=== PATIENT | female | born 1965 | race Caucasian/White ===

== ENCOUNTER 2016-12-24 10:53 | Day surgery (SDC) | payer OTHER ==
[2016-12-22 14:30] VITALS: BMI 30.9
[2016-12-24] MEDS ORDERED: ALBUTEROL SO4 2.5/IPRATROPIUM 0.5 INH SOL 3 ML VIAL.NEB. NEB ONE ×2 (11:41→11:45)
[2016-12-24] MEDS ORDERED: ONDANSETRON 4 MG/2 ML VIAL ONE (12:05)
[2016-12-24] MEDS ORDERED: ROCURONIUM BROMIDE 50 MG/5 ML VIAL ONE (12:05)
[2016-12-24] MEDS ORDERED: MIDAZOLAM HCL 2 MG/2 ML SINGLE DOSE VIAL ONE (12:05)
[2016-12-24] MEDS ORDERED: PROPOFOL 20 ML ONE (12:06)
[2016-12-24] MEDS ORDERED: GLYCOPYRROLATE 0.2 MG/1 ML VIAL ONE ×4 (12:06)
[2016-12-24] MEDS ORDERED: NEOSTIGMINE METHYLSULFATE 0.5 MG/ML - 10 ML MDV ONE (12:06)
[2016-12-24] MEDS ORDERED: SUCCINYLCHOLINE CHLORIDE 200 MG/10 ML VIAL ONE (12:06)
[2016-12-24] MEDS ORDERED: DEXAMETHASONE SOD PHOSPHATE 10 MG/1 ML VIAL ONE (12:07)
[2016-12-24] MEDS ORDERED: INDOMETHACIN 50 MG RECTAL SUPPOSITORY PR ONE ×3 (12:25→13:30)
[2016-12-24] MEDS ORDERED: IOHEXOL 300 MG/ML INFUS..BTL IV ONE (12:40)
[2016-12-24 13:15] VITALS: TEMP 97.5
[2016-12-24 16:53] VITALS: BP 127/67; PULSE 88
== END 2016-12-24 17:19 | disposition home or self-care (01) ==
LOC: JASU-ENDO 10:53
PROVIDERS: ATTEND Internal Medicine Gastroenterology
PROC: 0FJB8ZZ Inspection of Hepatobiliary Duct, Via Natural or Artificial Opening Endoscopic (ICD-10-PCS; principal; 2016-12-24 12:00)
DX: K83.8 Other specified diseases of biliary tract (principal)
CPT/HCPCS: 36415; 76000-TC; 82150; 84703; 94640

== ENCOUNTER 2017-01-06 05:36 | Day surgery (SDC) | payer OTHER ==
[2017-01-02 17:23] VITALS: BMI 30.9
[2017-01-06] MEDS ORDERED: SUCCINYLCHOLINE CHLORIDE 200 MG/10 ML VIAL ONE (14:25)
[2017-01-06] MEDS ORDERED: MIDAZOLAM HCL 2 MG/2 ML SINGLE DOSE VIAL ONE (14:25)
[2017-01-06] MEDS ORDERED: PROPOFOL 20 ML ONE ×2 (14:25)
[2017-01-06] MEDS ORDERED: METRONIDAZOLE 500 MG PREMIXED 100 ML IVPB ONE (14:37)
[2017-01-06] MEDS ORDERED: VASOPRESSIN 20 UNITS/ML VIAL IV ONE ×2 (14:59→15:00)
[2017-01-06] MEDS ORDERED: METRONIDAZOLE 500 MG PREMIXED 500 MG/100 ML MG IVPB ONE (15:05)
[2017-01-06] MEDS ORDERED: DESFLURANE GAS 240 ML BOTTLE IH ONE (15:26)
[2017-01-06] MEDS ORDERED: oxyCODONE HCL 5 MG TABLET PO PRN ×2 (15:52→15:57)
[2017-01-06] MEDS ORDERED: ONDANSETRON 4 MG/2 ML VIAL IVPUSH PRN (15:52)
--- NOTE | 2017-01-06 15:52 | HP ---
History & Physical Update - History History: No Change - Physical Physical: No Change - Assessment Assessment: No Change - Plan Plan: No Change (Consent signed and witnessed)
--- NOTE | 2017-01-06 15:56 | OP ---
Operative Note - Note: Operative Date: 01/06/17 Pre-Operative Diagnosis: 51 yo P0 with FREDY II-III on colposcopic biopsy Operation: Cold knife cone, Endocervical curettage, Endometrial curettage Findings: 1.5cm diameter Lugol Uptake Post-Operative Diagnosis: Same as Pre-op Surgeon: Naina Pruitt Anesthesiologist/SUPERVISOR FINISHING ROOM: Osman Kwan Anesthesia: MAC Specimens Removed: 1. Cervical cone. 2. ECC. 3. EMC Estimated Blood Loss (mls): 20 Drains, Volume Out (mls): 200 Fluid Volume Replaced (mls): 800 Operative Report Dictated: Yes
[2017-01-06] MEDS ORDERED: IBUPROFEN 800 MG/8 ML IJ IVPB PRN (15:57)
[2017-01-06] MEDS ORDERED: ONDANSETRON 4 MG/2 ML VIAL IVPB PRN (15:57)
[2017-01-06] MEDS ORDERED: IBUPROFEN 600 MG TABLET (FP) PO PRN (15:57)
[2017-01-06] MEDS ORDERED: LACTATED RINGERS SOLUTION 1,000 ML IV SCH (16:00)
[2017-01-06] MEDS ORDERED: ELECTROLYTE-148 SOLN 1,000 ML IV SCH (16:00)
[2017-01-06 16:43] VITALS: TEMP 97.7
[2017-01-06 17:51] VITALS: BP 143/74; PULSE 81
--- NOTE | 2017-01-07 13:06 | OP ---
DATE OF OPERATION: 01/06/2017 PREOPERATIVE DIAGNOSIS: A 51-year-old para 0 with FREDY 2-3 on colposcopic biopsy. OPERATION: Cold knife cone, endocervical curettage, and endometrial curettage. FINDINGS: A 1.5 cm in diameter ectocervical lesion with Lugol uptake. PREOPERATIVE DIAGNOSIS: A 51-year-old para 0 with FREDY 2-3 on colposcopic biopsy. SURGEON: Naina Pruitt MD ANESTHESIOLOGIST: Osman Kwan MD ANESTHESIA: Mask-assisted anesthesia. SPECIMENS: Cervical cone, endocervical curettings and endometrial curettings; total of 3 specimens. ESTIMATED BLOOD LOSS: 20 mL. URINE OUTPUT: 200 mL. FLUIDS REPLACED: 800 mL. DESCRIPTION OF THE OPERATIVE PROCEDURE: After ensuring informed consent, patient was brought to the operating room where a time-out was conducted and patient was properly identified. After ensuring adequate level of anesthesia, patient was placed in dorsal lithotomy position. Perineum was prepped with betadine and vagina was prepped with ascetic acid. Arechiga retractors were placed into the vagina. Cervix was articulated with a single-toothed tenaculum and painted with Lugol solution. Then, 6 mL of dilute 20 in 100 of normal saline vasopressin solution were injected circumferentially, avoiding the 3 and 9 o'clock positions. UR-5 size 0 Vicryl sutures were used at 3 o'clock and 9 o'clock to assure further hemostasis. An 11 blade was used to create a cone, excising the Lugol-painted lesion of the cervix circumferentially. Specimen was marked at 12, 6, 3, and 9 o'clock, and was sent for pathology. A 0 surgical curette was used for endocervical curettage and the same curette was used for endometrial curettage. The cone base was cauterized with Rollerball cautery and Monsel solution until excellent hemostasis was achieved. Stay sutures were tied in the midline. All instruments were removed from the cervix and vagina. Patient was placed supine. All instrument counts and sponges were correct x2. Patient was extubated and brought to the recovery room in stable condition. Jonatan [id number]
--- NOTE | 2017-01-08 10:36 | PATH ---
Surgical Pathology Report Patient Name: RASHMI ESCOBAR [facility]. Rec. #: [id number] /Age/Gender: 1965 (Age: 51) / F Account: [id number] Location: [facility] SURGICAL Taken: 01/06/2017 Received: 01/07/2017 Reported: 01/13/2017 Physicians: Naina Pruitt M.D. Specimen(s) Received A: ENDOMETRIAL CURETTINGS B: ENDOCERVICAL CURETTINGS C: CERVICAL CONE Clinical History High grade intraepithelial lesion cyto smr cervix Final Diagnosis AMENDED REPORT A. ENDOMETRIUM, CURETTING: BENIGN ENDOCERVICAL MUCOSA AND POSSIBLE LOWER UTERINE SEGMENT ENDOMETRIUM. NO ENDOMETRIAL HYPERPLASIA OR CARCINOMA IDENTIFIED. B. ENDOCERVIX, CURETTING: ISOLATED FRAGMENTS OF DYSPLASTIC SQUAMOUS EPITHELIUM, AND BENIGN ENDOCERVICAL TISSUE. C. CERVIX, CONE EXCISION: HIGH GRADE SQUAMOUS INTRAEPITHELIAL LESION (FREDY 2-3, MODERATE TO SEVERE DYSPLASIA) WITH ENDOCERVICAL GLANDULAR EXTENSION. HIGH GRADE SQUAMOUS INTRAEPITHELIAL LESION FOCALLY EXTENDS TO ECTOCERVICAL MARGIN. Comment: Recommend correlation with clinical findings and follow up as clinically indicated. Amendment Comment: This case was discussed with Dr. Pruitt on 01/12/2017. A typographical error has been corrected in Specimen B, changing "ileum" to "epithelium". As an additional comment, the High Grade KATHY in Specimen C extends to the ectocervical margin in the 12:00 to 3:00 quadrant. Electronically Signed Gary Menjivar M.D. Gross Description A. Received in formalin labeled "endometrial curetting," is a 0.6 x 0.5 x 0.2 cm aggregate of dai-brown soft tissue fragments. The formalin is filtered and the specimen is entirely submitted in one cassette. B. Received in formalin labeled "endocervical curetting," is a 0.4 x 0.3 x 0.1 cm aggregate of dai-brown soft tissue fragments. The formalin is filtered and the specimen is entirely submitted in one cassette. C. Received in formalin labeled "cervical cone," is a 2.9 cm in length x 1.4 cm in diameter cervical cone biopsy. There is a suture marking the 12:00 aspect of the specimen, per the surgeon. The specimen is inked green, serially sectioned and entirely and sequentially submitted in 4 cassettes as follows: 1-12:00 to 3:00; 2-3-3:00 to 6:00; 4-6:00 to 9:00; 5-9:00 to 12:00. /01/07/2017 saudi01/07/2017
== END 2017-01-06 17:55 | disposition home or self-care (01) ==
LOC: JASU-SURG 05:36
PROVIDERS: ATTEND Obstetrics & Gynecology
PROC: 0UBC7ZX Excision of Cervix, Via Natural or Artificial Opening, Diagnostic (ICD-10-PCS; principal; 2017-01-06 12:00)
DX: D06.9 Carcinoma in situ of cervix, unspecified (principal)
CPT/HCPCS: 84703; 87086; 88305-TC; 88307-TC; 94760

== ENCOUNTER 2017-10-26 19:06 | Inpatient (IN) | payer OTHER ==
[2017-10-26 19:25] VITALS: BMI 32.2
--- NOTE | 2017-10-26 19:26 | PDOC ---
Rapid Medical Evaluation Chief Complaint: Pain Time Seen by Provider: 10/26/17 19:24 Medical Evaluation: Allergies Allergy/AdvReac Type Severity Reaction Status Date / Time No Known Allergies Allergy Verified 01/06/17 11:00 10/26/17 19:24 I performed a brief in-person evaluation of this patient. This patient presents with a chief complaint of epigastric pain radiating to right upper quadrant and around to back. Also reports nausea and productive cough spitting up yellowish phlegm. Denies fever or chills. Reports history of cholecystitis. Pertinent physical exam findings: NAD lungs clear bilat +tenderness in mid epigastrum, no tenderness in right upper quadrant + bowel sounds I have ordered the following: labs ordered The patient will proceed to the ED for further evaluation.
[2017-10-26 20:18] LABS: BASO % 0.7 % (0-2.0); EOS % 0.4 % (0-4.5); HEMATOCRIT 41.2 % (32.4-45.2); HEMOGLOBIN 12.8 GM/dL (10.7-15.3); LYMPH % 8.6 % (8-40); MCH 24.4 pg (25.7-33.7); MCHC 31.2 g/dl (32.0-36.0); MEAN CELL VOLUME 78.4 fl (80-96); MEAN PLT VOLUME 8.6 fl (7.5-11.1); MONO % 7.8 % (3.8-10.2); NEUT % 82.5 % (42.8-82.8); PLATELET COUNT 272 K/MM3 (134-434); RBC 5.25 M/mm3 (3.60-5.2); RDW 17.2 % (11.6-15.6); WHITE BLOOD COUNT 14.9 K/mm3 (4.0-10.0)
[2017-10-26 20:42] LABS: ALBUMIN 3.5 g/dl (3.4-5.0); ANION GAP 9 (8-16); BLOOD UREA NITROGEN 12 mg/dL (7-18); CALCIUM 8.3 mg/dL (8.5-10.1); CHLORIDE 104 mmol/L (98-107); CO2 26 mmol/L (21-32); CREATININE 0.7 mg/dL (0.55-1.02); GLUCOSE,RANDOM 106 mg/dL (74-106); LIPASE 97 U/L (73-393); POTASSIUM 4.6 mmol/L (3.5-5.1); SGOT/AST 22 U/L (15-37); SGPT/ALT 26 U/L (12-78); SODIUM 139 mmol/L (136-145)
[2017-10-26 20:44] LABS: ALK PHOS 114 U/L (45-117); BILIRUBIN,TOTAL 1.2 mg/dL (0.2-1.0); TOT PROT 7.9 g/dl (6.4-8.2)
[2017-10-26 21:58] LABS: INR 1.09 (0.82-1.09); PROTHROMBIN TIME (PATIENT) 12.3 SEC (9.98-11.88)
[2017-10-26 22:01] LABS: ACTIVATED PTT 28.3 SECONDS (26.9-34.4)
[2017-10-26] MEDS ORDERED: morphine CARPU-JECT 2 MG/1 ML DISP.SYRIN IVPUSH ONE (23:04)
[2017-10-26] MEDS ORDERED: ONDANSETRON 4 MG/2 ML VIAL IVPUSH STA (23:04)
[2017-10-26] MEDS ORDERED: PANTOPRAZOLE SODIUM 40 MG in SODIUM CHLORIDE 100 ML IVPB ONE (23:04)
--- NOTE | 2017-10-26 23:04 | PDOC ---
History of Present Illness - History of Present Illness Initial Comments: 10/26/17 23:15 Patient is a 52 year old female with a significant PMHx of COPD (current pack a day smoker)ERCP done in December, who present to the ED for epigastric pain similar to her "gallbladder" attack. Patient describes her pain as severe cramping that radiates throughout her ribcage. Patient states she has been nauseous, forced vomiting with thick clear/yellow tinted mucous, unable to eat for 2 days. She denies any fever, urinary complaints. Denies any recent travel. Allergies: denies Family history: maternal CAD & diabetes Social history: pack a day smoker PCP: Koki Jolley GI: Vamsi Judge <Pau Juarez - Last Filed: 10/26/17 23:52> - General History Source: Patient <Jean Paul Hernandez - Last Filed: 10/27/17 19:14> - General Chief Complaint: Pain Stated Complaint: ABDOMINAL PAIN Time Seen by Provider: 10/26/17 19:24 Past History <Pau Juarez - Last Filed: 10/26/17 23:52> - Past Medical History Anemia: No Asthma: No Cancer: No Cardiac Disorders: No CVA: No COPD: Yes (+ smoker) CHF: No Dementia: No Diabetes: No GI Disorders: Yes (GALLSTONES) Disorders: No HTN: No Hypercholesterolemia: No Liver Disease: No Seizures: No Thyroid Disease: No - Surgical History Abdominal Surgery: No Appendectomy: No Cardiac Surgery: No Cholecystectomy: No Lung Surgery: No Neurologic Surgery: No Orthopedic Surgery: Yes (KNEE SX RT) - Suicide/Smoking/Psychosocial Hx Smoking History: Current every day smoker Have you smoked in the past 12 months: Yes Number of Cigarettes Smoked Daily: 20 Information on smoking cessation initiated: No 'Breaking Loose' booklet given: 12/24/16 Hx Alcohol Use: Yes Drug/Substance Use Hx: No Substance Use Type: Alcohol Hx Substance Use Treatment: No <Jean Paul Hernandez - Last Filed: 10/27/17 19:14> - Past Medical History Allergies/Adverse Reactions: Allergies Allergy/AdvReac Type Severity Reaction Status Date / Time No Known Allergies Allergy Verified 01/06/17 11:00 Home Medications: Ambulatory Orders Albuterol Sulfate [Proventil HFA Inhaler -] 1 - 2 inh PO TID PRN #1 inhaler Tiotropium [place] [Spiriva] 1 inh PO PRN 12/22/16 Review of Systems - Review of Systems Comments:: 10/26/17 23:21 CONSTITUTIONAL: Absent: fever, no chills, no fatigue EYES: Absent: visual changes ENT: Absent: ear pain, no sore throat CARDIOVASCULAR: Absent: chest pain, no palpitations RESPIRATORY: Absent: cough, no SOB GI: Present: epigastric pain, nausea, forced vomiting Absent: no constipation, no diarrhea GENITOURINARY: Absent: dysuria, no frequency, no hematuria MUSCULOSKELETAL: Absent: back pain, no arthralgia, no myalgia SKIN: Absent: rash <Pau Juarez - Last Filed: 10/26/17 23:52> *Physical Exam - Vital Signs Last Vital Signs Temp Pulse Resp BP Pulse Ox 98.2 F 104 H 22 119/69 99 10/26/17 19:22 10/26/17 19:22 10/26/17 19:22 10/26/17 19:22 10/26/17 19:22 - Physical Exam Comments: 10/26/17 23:22 GENERAL: Well-appearing, well-nourished. In moderate distress. HEENT: Normocephalic, atraumatic. PERRL, EOM intact. CARDIOVASCULAR: Normal S1, S2. Regular rate and rhythm. PULMONARY: Clear to auscultation bilaterally. ABDOMEN: Soft, non-distended, right upper quadrant & epigastric pain. No rebound or guarding. EXTREMITIES: Normal ROM in all four extremities. No gross deformities. SKIN: Warm, dry. No rash NEUROLOGICAL: Intact, no focal neurological deficits. <Pau Juarez - Last Filed: 10/26/17 23:52> - Vital Signs Last Vital Signs Temp Pulse Resp BP Pulse Ox 98.2 F 104 H 22 119/69 99 10/26/17 19:22 10/26/17 19:22 10/26/17 19:22 10/26/17 19:22 10/26/17 19:22 <Jean Paul Hernandez - Last Filed: 10/27/17 19:14> Heart Score/ECG Review - ECG Impressions Comment:: 10/26/17 23:50 EKG Interpretation: Normal sinus rhythm Possible left atrial enlargement nonspecific abnormality Vent. rate: 79 bpm <Pau Juarez - Last Filed: 10/26/17 23:52> ED Treatment Course - LABORATORY CBC & Chemistry Diagram: 10/26/17 20:10 10/26/17 20:10 - ADDITIONAL ORDERS Additional order review: Laboratory Results 10/26/17 10/26/17 20:10 20:10 PT with INR 12.30 H INR 1.09 PTT (Actin FS) 28.3 Sodium 139 Potassium 4.6 Chloride 104 Carbon Dioxide 26 Anion Gap 9 BUN 12 Creatinine 0.7 Creat Clearance w eGFR > 60 Random Glucose 106 Calcium 8.3 L Total Bilirubin 1.2 H D AST 22 ALT 26 Alkaline Phosphatase 114 Total Protein 7.9 Albumin 3.5 Lipase 97 10/26/17 20:10 RBC 5.25 H MCV 78.4 L MCHC 31.2 L RDW 17.2 H D MPV 8.6 Neutrophils % 82.5 D Lymphocytes % 8.6 D Monocytes % 7.8 Eosinophils % 0.4 D Basophils % 0.7 <Pau Juarez - Last Filed: 10/26/17 23:52> - LABORATORY CBC & Chemistry Diagram: 10/26/17 20:10 10/26/17 20:10 - ADDITIONAL ORDERS Additional order review: Laboratory Results 10/26/17 10/26/17 20:10 20:10 PT with INR 12.30 H INR 1.09 PTT (Actin FS) 28.3 Sodium 139 Potassium 4.6 Chloride 104 Carbon Dioxide 26 Anion Gap 9 BUN 12 Creatinine 0.7 Creat Clearance w eGFR > 60 Random Glucose 106 Calcium 8.3 L Total Bilirubin 1.2 H D AST 22 ALT 26 Alkaline Phosphatase 114 Total Protein 7.9 Albumin 3.5 Lipase 97 10/26/17 20:10 RBC 5.25 H MCV 78.4 L MCHC 31.2 L RDW 17.2 H D MPV 8.6 Neutrophils % 82.5 D Lymphocytes % 8.6 D Monocytes % 7.8 Eosinophils % 0.4 D Basophils % 0.7 <Jean Paul Hernandez - Last Filed: 10/27/17 19:14> Medical Decision Making - Medical Decision Making 10/27/17 19:13 Dr. Hernandez: The scribe's documentation has been prepared under my direction and personally reviewed by me in its entirery. I confirm that the note above accurately reflects all work, treatment, procedures, and medical decision making performed by me. <Jean Paul Hernandez - Last Filed: 10/27/17 19:14> *DC/Admit/Observation/Transfer - Attestations Scribe Attestion: 10/26/17 23:24 Documentation prepared by Pau Juarez, acting as medical insurance coding specialist for Jean Paul Hernandez MD. <Pau Juarez - Last Filed: 10/26/17 23:52> <Jean Paul Hernandez - Last Filed: 10/27/17 19:14> Diagnosis at time of Disposition: Biliary colic - Discharge Dispostion Condition at time of disposition: Fair
[2017-10-26] MEDS ORDERED: SODIUM CHLORIDE 1,000 ML IV STA (23:05)
[2017-10-26] MEDS ORDERED: morphine CARPU-JECT 10 MG/1 ML DISP.SYRIN ONE (23:19)
[2017-10-26] MEDS ORDERED: ONDANSETRON 4 MG/2 ML VIAL ONE (23:19)
[2017-10-27] MEDS ORDERED: HYDROmorphone HCL CARPU-JECT 1 MG/1 ML DISP.SYRIN IVPUSH ONE ×2 (01:20→09:58)
[2017-10-27] MEDS ORDERED: METOCLOPRAMIDE HCL INJECTION 10 MG/2 ML VIAL IVPUSH ONE (01:20)
[2017-10-27] MEDS ORDERED: METOCLOPRAMIDE HCL INJECTION 10 MG/2 ML VIAL ONE (01:28)
[2017-10-27] MEDS ORDERED: HYDROmorphone HCL CARPU-JECT 1 MG/1 ML DISP.SYRIN ONE ×2 (01:28→10:59)
--- NOTE | 2017-10-27 09:55 | PDOC ---
*Physical Exam - Vital Signs Last Vital Signs Temp Pulse Resp BP Pulse Ox 98.2 F 81 22 131/60 95 10/26/17 19:22 10/27/17 06:48 10/26/17 19:22 10/27/17 06:48 10/27/17 06:48 - Physical Exam Comments: 10/27/17 09:46 Afebrile, well-appearing Tender with guarding in the right upper quadrant, otherwise soft and nondistended ED Treatment Course - LABORATORY CBC & Chemistry Diagram: 10/26/17 20:10 10/26/17 20:10 - ADDITIONAL ORDERS Additional order review: Laboratory Results 10/26/17 10/26/17 23:35 20:10 PT with INR 12.30 H INR 1.09 PTT (Actin FS) 28.3 Creatine Kinase 39 Troponin I < 0.02 10/26/17 20:10 RBC 5.25 H MCV 78.4 L MCHC 31.2 L RDW 17.2 H D MPV 8.6 Neutrophils % 82.5 D Lymphocytes % 8.6 D Monocytes % 7.8 Eosinophils % 0.4 D Basophils % 0.7 - Medications Given in the ED: ED Medications Discontinued Medications Generic Name Dose Route Start Last Admin Trade Name Freq PRN Reason Stop Dose Admin Hydromorphone HCl 0.5 mg 10/27/17 01:20 10/27/17 01:39 Dilaudid Injection - IVPUSH 10/27/17 01:21 0.5 mg ONCE ONE Administration Pantoprazole Sodium 40 mg/ 100 mls @ 200 mls/hr 10/26/17 23:04 10/26/17 23:52 Sodium Chloride IVPB 10/26/17 23:33 200 mls/hr ONCE ONE Administration Sodium Chloride 1,000 mls @ 1,000 mls/hr 10/26/17 23:05 10/26/17 23:42 Normal Saline - IV 10/27/17 00:04 1,000 mls/hr ASDIR STA Administration Metoclopramide HCl 10 mg 10/27/17 01:20 10/27/17 01:40 Reglan Injection - IVPUSH 10/27/17 01:21 10 mg ONCE ONE Administration Morphine Sulfate 6 mg 10/26/17 23:04 10/26/17 23:42 Morphine Injection - IVPUSH 10/26/17 23:05 6 mg ONCE ONE Administration Ondansetron HCl 4 mg 10/26/17 23:04 10/26/17 23:52 Zofran Injection IVPUSH 10/26/17 23:05 4 mg ONCE STA Administration Medical Decision Making - Medical Decision Making 10/27/17 09:50 Received signout on this 52-year-old female who presented with acute onset right upper quadrant pain for 2 days' duration, known history of gallstones. Labs notable for white count of 14.9, normal LFTs and lipase. Plan at sign out was to follow up right upper quadrant ultrasound and distal accordingly. Ultrasound shows multiple gallstones and dilated CBD without clear choledocholithiasis or cholecystitis. Patient's right upper quadrant tenderness persists, and given the leukocytosis with ? CBD stone and cholecystitis, admitted for further management. Dr. Orta called as decoration checker service physician. 10/27/17 12:09 Accepted for inpatient med/surg by Dr. Orta, signout given to Dr. Larson. Requests consult from Dr. Chahal, which was ordered. *DC/Admit/Observation/Transfer Diagnosis at time of Disposition: Biliary colic - Discharge Dispostion Condition at time of disposition: Fair Admit: Yes - Referrals Referrals: Koki Jolley MD [Primary Care Provider] - - Patient Instructions - Post Discharge Activity
--- NOTE | 2017-10-27 10:43 | EKG ---
Test Reason : Blood Pressure : / mmHG Vent. Rate : 079 BPM Atrial Rate : 079 BPM P-R Int : 128 ms QRS Dur : 090 ms QT Int : 366 ms P-R-T Axes : 041 -12 061 degrees QTc Int : 419 ms NORMAL SINUS RHYTHM POSSIBLE LEFT ATRIAL ENLARGEMENT NONSPECIFIC ST ABNORMALITY ABNORMAL ECG WHEN COMPARED WITH ECG OF 01-JAN-2017 12:08, NO SIGNIFICANT CHANGE WAS FOUND Confirmed by MD Keanu, Lui ([id number]) on 10/27/2017 10:43:17 AM Referred By: Confirmed By:Lui Colunga MD
--- NOTE | 2017-10-27 14:06 | HP ---
Admitting History and Physical - Admission Chief Complaint: RUQ pain nausea and vomtting for 3 days History of Present Illness: Patient is a 52 year old female with a significant PMHx of COPD (current pack a day smoker)ERCP done in December, who present to the ED for epigastric pain similar to her "gallbladder" attack. Patient describes her pain as severe cramping that radiates throughout her ribcage. Patient states she has been nauseous, forced vomiting with thick clear/yellow tinted mucous, unable to eat for 2 days. She denies any fever, urinary complaints. Denies any recent travel. Allergies: denies Family history: maternal CAD & diabetes Social history: pack a day smoker PCP: Koki Jolley GI: Vamsi Judge per patient her pain started on thursday and was intially intermittent then became constant and severe so came to ER in ER found to have elevated wbc and bilirubin History Source: Patient - Past Medical History Pulmonary: Yes: COPD Hepatobiliary: Yes: Cholelithiasis ...LMP: 08/12/17 - Smoking History Smoking history: Current every day smoker Have you smoked in the past 12 months: Yes Aproximately how many cigarettes per day: 20 - Alcohol/Substance Use Hx Alcohol Use: Yes Home Medications - Allergies Allergies/Adverse Reactions: Allergies Allergy/AdvReac Type Severity Reaction Status Date / Time No Known Allergies Allergy Verified 01/06/17 11:00 - Home Medications Home Medications: Ambulatory Orders Albuterol Sulfate [Proventil HFA Inhaler -] 1 - 2 inh PO TID PRN #1 inhaler Tiotropium [place] [Spiriva] 1 inh PO PRN 12/22/16 Review of Systems - Review of Systems Gastrointestinal: reports: Abdominal Pain (RUQ), Nausea Physical Examination Vital Signs: Vital Signs Temperature 98.2 F 10/26/17 19:22 Pulse Rate 81 10/27/17 06:48 Respiratory Rate 22 10/26/17 19:22 Blood Pressure 131/60 10/27/17 06:48 O2 Sat by Pulse Oximetry (%) 98 10/27/17 09:55 Constitutional: Yes: Calm Neck: Yes: Trachea Midline Cardiovascular: Yes: Regular Rate and Rhythm, S1, S2 Respiratory: Yes: CTA Bilaterally Gastrointestinal: Yes: Tenderness (ruq) Labs: CBC, BMP 10/26/17 20:10 10/26/17 20:10 Problem List - Problems (1) Biliary colic Assessment/Plan: HIDA scan surgery evaluation Code(s): K80.50 - CALCULUS OF BILE DUCT W/O CHOLANGITIS OR CHOLECYST W/O OBST (2) Cholelithiasis Assessment/Plan: liver sono noted will order hida scan ivf iv abx dvt ppx Code(s): K80.20 - CALCULUS OF GALLBLADDER W/O CHOLECYSTITIS W/O OBSTRUCTION
[2017-10-27] MEDS ORDERED: CEFTRIAXONE 1 GM in DEXTROSE 5%-WATER - 50 ML IVPB SCH (14:15)
[2017-10-27] MEDS ORDERED: CEFTRIAXONE 1 GM/50 ML BAG ONE (14:35)
[2017-10-27] MEDS: DEXTROSE 5%-0.45% SALINE 1,000 ML IV SCH (14:35)
--- NOTE | 2017-10-27 21:01 | CONSULT ---
Consult Consult Specialty:: Surgery Reason for Consultation:: Abdominal pain - History of Present Illness History of Present Illness: 52 female presents for epigastric abdominal pain Had ERCP 1 month ago to rule out CBD stone- no stone seen per patient Now with similar pain No fevers/chills No nausea U/S shows gallstones with dilated CBD - History Source History Provided By: Patient, Medical Record Limitations to Obtaining History: No Limitations - Past Medical History Pulmonary: Yes: COPD Hepatobiliary: Yes: Cholelithiasis ...LMP: 08/12/17 - Alcohol/Substance Use Hx Alcohol Use: Yes - Smoking History Smoking history: Current every day smoker Have you smoked in the past 12 months: Yes Aproximately how many cigarettes per day: 20 Home Medications - Allergies Allergies/Adverse Reactions: Allergies Allergy/AdvReac Type Severity Reaction Status Date / Time No Known Allergies Allergy Verified 01/06/17 11:00 - Home Medications Home Medications: Ambulatory Orders Albuterol Sulfate [Proventil HFA Inhaler -] 1 - 2 inh PO TID PRN #1 inhaler Tiotropium [place] [Spiriva] 1 inh PO PRN 12/22/16 Family Disease History - Family Disease History Family History: Denies Review of Systems - Review of Systems Constitutional: denies: Chills, Fever Neck: reports: No Symptoms Cardiovascular: denies: Chest Pain Respiratory: denies: Cough Gastrointestinal: reports: Abdominal Pain (Mild epigastric pain) Neurological: denies: Change in LOC Pain Intensity: 3 Physical Exam Vital Signs: Vital Signs Temperature 98.7 F 10/27/17 14:08 Pulse Rate 94 H 10/27/17 19:42 Respiratory Rate 18 10/27/17 19:42 Blood Pressure 122/53 10/27/17 19:42 O2 Sat by Pulse Oximetry (%) 96 10/27/17 19:42 Constitutional: Yes: Calm Neck: Yes: Supple Cardiovascular: Yes: WNL Respiratory: Yes: Regular Gastrointestinal: Yes: Soft, Tenderness, Epigastrium. No: Tenderness, Rebound Neurological: Yes: Alert, Oriented Labs: CBC, BMP 10/26/17 20:10 10/26/17 20:10 Imaging - Results Ultrasound: Report Reviewed, Image Reviewed MRI: Pending Problem List - Problems (1) Acute cholecystitis Code(s): K81.0 - ACUTE CHOLECYSTITIS (2) Choledocholithiasis Code(s): K80.50 - CALCULUS OF BILE DUCT W/O CHOLANGITIS OR CHOLECYST W/O OBST Assessment/Plan 52 female with acute cholecystitis and dilated CBD MRCP to evaluate for CBD stone If CBD stone present, will need ERCP and then cholecystectomy If CBD stone not present, will need cholecystectomy NPO Antibiotics IV fluids
[2017-10-27] MEDS ORDERED: morphine CARPU-JECT 10 MG/1 ML DISP.SYRIN ONE (21:08)
[2017-10-27] MEDS: morphine CARPU-JECT 10 MG/1 ML DISP.SYRIN IVPUSH PRN (21:12)
--- NOTE | 2017-10-28 09:01 | PN ---
Progress Note (short form) - Note Progress Note: PT with a h/o of gallstones/s/p ERCP in the past without any stones visualized at the time. She had recurrent abd pain which has improved since admission. Vital Signs Period Temp Pulse Resp BP Sys/Hernandez Pulse Ox Last 24 Hr 98.5 F-99.1 F 91-100 17-20 104-135/53-79 95-100 GEN: appears comfortable ABD: soft, non-distended, epigastric tenderness. No guarding or rebound. Laboratory Tests 10/26/17 10/26/17 10/26/17 20:10 20:10 23:35 WBC 14.9 H D Hgb 12.8 Hct 41.2 Plt Count 272 D Sodium 139 Potassium 4.6 Chloride 104 Carbon Dioxide 26 Anion Gap 9 BUN 12 Creatinine 0.7 Creat Clearance w eGFR > 60 Random Glucose 106 Calcium 8.3 L Total Bilirubin 1.2 H D AST 22 ALT 26 Alkaline Phosphatase 114 Creatine Kinase 39 Troponin I < 0.02 Lipase 97 US-stones, dilated biliary tree HIDA: No GB filling A/P: 52 yo female with cholelithiasis/acute nishant PT receiving IV ceftriaxone F/u labs for today and trend LFTs MRCP ordered and will proceed with lap nishant if MRCP negative. ERCP if CBD stone visiaulzed on MRCP <Griselda Ann - Last Filed: 10/28/17 09:06> - Note Progress Note: Agree Pain improved + HIDA MRCP pending Abd soft, mild epigastric tenderness Await MRCP NPO <Sam Chahal - Last Filed: 10/28/17 15:07> Problem List - Problems (1) Acute cholecystitis Code(s): K81.0 - ACUTE CHOLECYSTITIS (2) Choledocholithiasis Code(s): K80.50 - CALCULUS OF BILE DUCT W/O CHOLANGITIS OR CHOLECYST W/O OBST <Sam Chahal - Last Filed: 10/28/17 15:07>
[2017-10-28 09:10] LABS: BASO % 0.6 % (0-2.0); EOS % 2.1 % (0-4.5); HEMATOCRIT 34.5 % (32.4-45.2); HEMOGLOBIN 10.6 GM/dL (10.7-15.3); LYMPH % 14.5 % (8-40); MCH 24.2 pg (25.7-33.7); MCHC 30.7 g/dl (32.0-36.0); MEAN CELL VOLUME 78.7 fl (80-96); MEAN PLT VOLUME 8.5 fl (7.5-11.1); MONO % 12.6 % (3.8-10.2); NEUT % 70.2 % (42.8-82.8); PLATELET COUNT 217 K/MM3 (134-434); RBC 4.38 M/mm3 (3.60-5.2); RDW 17.7 % (11.6-15.6); WHITE BLOOD COUNT 11.1 K/mm3 (4.0-10.0)
[2017-10-28 09:24] LABS: ALBUMIN 2.7 g/dl (3.4-5.0); AMYLASE 27 U/L (25-115); ANION GAP 6 (8-16); BLOOD UREA NITROGEN 12 mg/dL (7-18); CALCIUM 7.5 mg/dL (8.5-10.1); CHLORIDE 107 mmol/L (98-107); CO2 28 mmol/L (21-32); CREATININE 0.4 mg/dL (0.55-1.02); GLUCOSE,RANDOM 95 mg/dL (74-106); LIPASE 118 U/L (73-393); MAGNESIUM 1.5 mg/dL (1.8-2.4); PHOSPHOROUS 2.5 mg/dL (2.5-4.9); POTASSIUM 3.8 mmol/L (3.5-5.1); SGOT/AST 12 U/L (15-37); SGPT/ALT 18 U/L (12-78); SODIUM 141 mmol/L (136-145); TOT PROT 6.2 g/dl (6.4-8.2)
[2017-10-28 09:25] LABS: ALK PHOS 85 U/L (45-117); BILIRUBIN,TOTAL 0.6 mg/dL (0.2-1.0)
[2017-10-28] MEDS ORDERED: PT OWN MED DRAWER 7, Y5N ONE (09:36)
[2017-10-28] MEDS: PANTOPRAZOLE SODIUM 40 MG VIAL IVPUSH SCH (09:38)
[2017-10-28] MEDS: TIOTROPIUM BROMIDE 18 MCG/INH (DEVICE W/ 5 CAPSULES) IH SCH (09:38)
[2017-10-28] MEDS: CEFTRIAXONE 1 G/50 ML PREMIX 50 ML IVPB SCH (09:38)
--- NOTE | 2017-10-28 12:34 | PN ---
Progress Note, Physician Chief Complaint: Abdominal pain History of Present Illness: NAD, self ambulatory seen by GI surgery awaiting MRCP NPO - Current Medication List Current Medications: Active Medications Dextrose/Sodium Chloride (D5-1/2ns -) 1,000 mls @ 100 mls/hr IV ASDIR [facility] Last Admin: 10/27/17 14:35 Dose: 100 mls/hr CEFTRIAXONE 1 G/50 ML PREMIX (Ceftriaxone 1 Gm-D5w Bag) 50 mls @ 100 mls/hr IVPB DAILY [facility] Stop: 10/31/17 14:14 Last Admin: 10/28/17 09:38 Dose: 100 mls/hr Morphine Sulfate (Morphine Injection -) 4 mg IVPUSH Q6H PRN PRN Reason: PAIN LEVEL 7 - 10 Last Admin: 10/27/17 21:12 Dose: 4 mg Ondansetron HCl (Zofran Injection) 4 mg IVPUSH Q6H PRN PRN Reason: NAUSEA Pantoprazole Sodium (Protonix Iv) 40 mg IVPUSH DAILY [facility] Last Admin: 10/28/17 09:38 Dose: 40 mg Tiotropium [place] (Spiriva -) 1 puff IH DAILY [facility] Last Admin: 10/28/17 09:38 Dose: Not Given - Objective Vital Signs: Vital Signs Temperature 99.4 F 10/28/17 09:00 Pulse Rate 100 H 10/28/17 09:00 Respiratory Rate 20 10/28/17 09:00 Blood Pressure 113/64 10/28/17 09:00 O2 Sat by Pulse Oximetry (%) 97 10/28/17 09:00 Constitutional: Yes: Well Nourished, No Distress, Calm Cardiovascular: Yes: Regular Rate and Rhythm Respiratory: Yes: Regular Gastrointestinal: Yes: Tenderness, Epigastrium Musculoskeletal: Yes: WNL Extremities: Yes: WNL Edema: No Peripheral Pulses WNL: Yes Neurological: Yes: Alert, Oriented Psychiatric: Yes: Alert, Oriented Labs: CBC, BMP 10/28/17 07:45 10/28/17 07:45 INR, PTT INR 1.09 (0.82-1.09) 10/26/17 20:10 Problem List - Problems (1) Acute cholecystitis Assessment/Plan: -IV abx -seen by GI surgery -IVF -morphine for pain management -awaiting MRCP Code(s): K81.0 - ACUTE CHOLECYSTITIS (2) Choledocholithiasis Code(s): K80.50 - CALCULUS OF BILE DUCT W/O CHOLANGITIS OR CHOLECYST W/O OBST (3) Leukocytosis Assessment/Plan: 2/2 cholecystitis -improving -monitor trend -afebrile Code(s): D72.829 - ELEVATED WHITE BLOOD CELL COUNT, UNSPECIFIED Assessment/Plan see problem list
--- NOTE | 2017-10-28 18:51 | PN ---
Progress Note (short form) - Note Progress Note: MRCP reviewed patieint has possible CBD stone vs pnumobilia, s/p ERCP by Dr Judge last 12/26/16. Patient would like to contiue to see Dr Patel. The nurse was informed
[2017-10-28] MEDS: MAGNESIUM OXIDE 400 MG TABLET (FP) PO SCH (21:53)
[2017-10-29] MEDS: DEXTROSE 5%-0.45% SALINE 1,000 ML IV SCH (00:30)
[2017-10-29 07:43] LABS: BASO % 0.5 % (0-2.0); EOS % 4.7 % (0-4.5); HEMATOCRIT 35.8 % (32.4-45.2); HEMOGLOBIN 11.3 GM/dL (10.7-15.3); LYMPH % 14.7 % (8-40); MCH 24.8 pg (25.7-33.7); MCHC 31.5 g/dl (32.0-36.0); MEAN CELL VOLUME 78.6 fl (80-96); MEAN PLT VOLUME 8.4 fl (7.5-11.1); MONO % 11.3 % (3.8-10.2); NEUT % 68.8 % (42.8-82.8); PLATELET COUNT 211 K/MM3 (134-434); RBC 4.56 M/mm3 (3.60-5.2); RDW 17.3 % (11.6-15.6); WHITE BLOOD COUNT 8.9 K/mm3 (4.0-10.0)
[2017-10-29 08:25] LABS: CHLORIDE 107 mmol/L (98-107); POTASSIUM 3.6 mmol/L (3.5-5.1); SODIUM 141 mmol/L (136-145)
[2017-10-29 08:52] LABS: ALBUMIN 2.6 g/dl (3.4-5.0); ALK PHOS 82 U/L (45-117); ANION GAP 9 (8-16); BILIRUBIN,DIRECT 0.2 mg/dL (0.0-0.2); BILIRUBIN,TOTAL 0.7 mg/dL (0.2-1.0); BLOOD UREA NITROGEN 6 mg/dL (7-18); CALCIUM 7.4 mg/dL (8.5-10.1); CO2 25 mmol/L (21-32); CREATININE 0.4 mg/dL (0.55-1.02); GLUCOSE,RANDOM 106 mg/dL (74-106); SGOT/AST 12 U/L (15-37); SGPT/ALT 17 U/L (12-78); TOT PROT 6.1 g/dl (6.4-8.2)
[2017-10-29] MEDS ORDERED: PT OWN MED DRAWER 7, Y5N ONE ×2 (09:14→09:56)
[2017-10-29] MEDS: MAGNESIUM OXIDE 400 MG TABLET (FP) PO SCH ×2 (09:19→22:37)
[2017-10-29] MEDS: CEFTRIAXONE 1 G/50 ML PREMIX 50 ML IVPB SCH (09:20)
[2017-10-29] MEDS: PANTOPRAZOLE SODIUM 40 MG VIAL IVPUSH SCH (09:20)
[2017-10-29] MEDS: TIOTROPIUM BROMIDE 18 MCG/INH (DEVICE W/ 5 CAPSULES) IH SCH (09:22)
--- NOTE | 2017-10-29 10:30 | PN ---
Progress Note, Physician Chief Complaint: Abdominal pain History of Present Illness: NAD, self ambulatory seen by GI surgery no abdominal pain eager to go home to be seen by Dr Judge's group MRCP reviewed, would likely need ERCP - Current Medication List Current Medications: Active Medications CEFTRIAXONE 1 G/50 ML PREMIX (Ceftriaxone 1 Gm-D5w Bag) 50 mls @ 100 mls/hr IVPB DAILY [facility] Stop: 10/31/17 14:14 Last Admin: 10/29/17 09:20 Dose: 100 mls/hr Dextrose/Lactated Ringer's (D5-Lr -) 1,000 mls @ 75 mls/hr IV ASDIR [facility] Magnesium Oxide (Mag-Ox -) 400 mg PO BID [facility] Last Admin: 10/29/17 09:19 Dose: 400 mg Morphine Sulfate (Morphine Injection -) 4 mg IVPUSH Q6H PRN PRN Reason: PAIN LEVEL 7 - 10 Last Admin: 10/27/17 21:12 Dose: 4 mg Ondansetron HCl (Zofran Injection) 4 mg IVPUSH Q6H PRN PRN Reason: NAUSEA Pantoprazole Sodium (Protonix Iv) 40 mg IVPUSH DAILY [facility] Last Admin: 10/29/17 09:20 Dose: 40 mg Tiotropium [place] (Spiriva -) 1 puff IH DAILY [facility] Last Admin: 10/29/17 09:22 Dose: 1 puff - Objective Vital Signs: Vital Signs Temperature 99.2 F 10/29/17 08:00 Pulse Rate 92 H 10/29/17 08:00 Respiratory Rate 18 10/29/17 08:00 Blood Pressure 135/68 10/29/17 08:00 O2 Sat by Pulse Oximetry (%) 96 10/28/17 22:00 Constitutional: Yes: Well Nourished, No Distress, Calm Cardiovascular: Yes: Regular Rate and Rhythm Respiratory: Yes: Regular Gastrointestinal: Yes: Normal Bowel Sounds, Soft, Tenderness, Epigastrium (on palpation) Musculoskeletal: Yes: WNL Extremities: Yes: WNL Edema: No Peripheral Pulses WNL: Yes Neurological: Yes: Alert, Oriented Psychiatric: Yes: Alert, Oriented Labs: CBC, BMP 10/29/17 06:43 10/29/17 06:43 INR, PTT INR 1.09 (0.82-1.09) 10/26/17 20:10 Problem List - Problems (1) Acute cholecystitis Assessment/Plan: -IV abx -seen by GI surgery -IVF -morphine for pain management -ERCP Code(s): K81.0 - ACUTE CHOLECYSTITIS (2) Choledocholithiasis Code(s): K80.50 - CALCULUS OF BILE DUCT W/O CHOLANGITIS OR CHOLECYST W/O OBST (3) Leukocytosis Assessment/Plan: 2/2 cholecystitis -improving -monitor trend -afebrile Code(s): D72.829 - ELEVATED WHITE BLOOD CELL COUNT, UNSPECIFIED Assessment/Plan see problem list
[2017-10-29] MEDS: DEXTROSE 5%-LACTATED RINGERS 1,000 ML IV SCH ×2 (10:50→21:10)
--- NOTE | 2017-10-29 13:42 | CON.GI ---
Consult Consult Specialty:: GI: Dr. Mckinney covering for Dr. Stewart Referred by:: Vineet Sabillon NP Reason for Consultation:: cholecystitis - History of Present Illness Chief Complaint: I had abdominal pain History of Present Illness: 52F admitted with 2 day history of right upper quadrant pain radiating bilaterally, upper abdominal pain along with associated nausea / vomiting. She has had similar episodes in the past however they would last significantly less time. She was evaluated by Dr. Guerra 10/28. Work-up led to an MRCP revealing dilated CBD with suggestion of filling defects within the duct. A follow-up ERCP was performed by Dr. Judge 12/26 that revealed a non-dilated PD, 1cm dilated CBD without filling defects, and sphincterotomy was not performed. Currently, US 10/27 revealed a dilated biliary tree, cholelithiasis and fatty liver. MRCP 10/28/17 revealed Persistent CBD dilatation with ? filling defect in dependent portion of CBD. HIDA was failed to reveal filling of the GB. Ms. Hanley has never had a colonoscopy. There is no family history of colorectal cancer or other GI malignancy. 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 Place of : [facility] History of Recent Travel: No Home Medications - Allergies Allergies/Adverse Reactions: Allergies Allergy/AdvReac Type Severity Reaction Status Date / Time No Known Allergies Allergy Verified 01/06/17 11:00 - Home Medications Home Medications: Ambulatory Orders Albuterol Sulfate [Proventil HFA Inhaler -] 1 - 2 inh PO TID PRN #1 inhaler Tiotropium [place] [Spiriva] 1 inh PO PRN 12/22/16 Family Disease History - Family Disease History Family Disease History: Other: Father (: 40's CHF), Mother (: 70's: blood dyscrasia), Sister (1, healthy), Son (none), Daughter (none) Other Family History: No family history of colorectal cancer or other GI malignancy Review of Systems - Review of Systems Constitutional: denies: Chills, Fever Cardiovascular: denies: Chest Pain Respiratory: reports: Cough (chronic). denies: SOB Gastrointestinal: reports: Abdominal Pain, Nausea, Vomiting. denies: Bloating, Rectal Bleeding Physical Exam-GI Vital Signs: Vital Signs Temperature 99.2 F 10/29/17 08:00 Pulse Rate 92 H 10/29/17 08:00 Respiratory Rate 18 10/29/17 08:00 Blood Pressure 135/68 10/29/17 08:00 O2 Sat by Pulse Oximetry (%) 96 10/29/17 09:00 Constitutional: Yes: Calm Eyes: No: Sclera Icterus Cardiovascular: Yes: Regular Rate and Rhythm Respiratory: Yes: CTA Bilaterally Gastrointestinal Inspection: No: Distention ...Auscultate: Yes: Normoactive Bowel Sounds ...Palpate: Yes: Tenderness (TTP RUQ). No: Guarding, Tenderness, Rebound ...Percussion: No: Tympanitic Edema: No (No LE edema) Labs: CBC, BMP 10/29/17 06:43 10/29/17 06:43 INR, PTT INR 1.09 (0.82-1.09) 10/26/17 20:10 Hepatic Panel Total Bilirubin 0.7 mg/dL (0.2-1.0) 10/29/17 06:43 Direct Bilirubin 0.2 mg/dL (0.0-0.2) 10/29/17 06:43 AST 12 U/L (15-37) L 10/29/17 06:43 ALT 17 U/L (12-78) 10/29/17 06:43 Alkaline Phosphatase 82 U/L (45-117) 10/29/17 06:43 Albumin 2.6 g/dl (3.4-5.0) L 10/29/17 06:43 Imaging - Results Ultrasound: Report Reviewed MRI: Report Reviewed Problem List - Problems (1) Acute cholecystitis Assessment/Plan: NPO IV Abx. Surgery following Code(s): K81.0 - ACUTE CHOLECYSTITIS (2) Choledocholithiasis Assessment/Plan: Despite normal liver chemistries, given MRCP findings and that spincterotomy was not performed during previous ERCP, Cannot exclude intraductal filling defect such as stone. Discussed case with Dr. Stewart and repeat ERCP planned for tomorrow. Discussed potential risks of the procedure like but not limited to bleeding, perforation requiring surgery to repair, infection, pancreatitis, sedation medication effects all of which could be potentially life threatening. She has agreed to the procedure AM labs ordered including T&C / coags Indocin suppository ordered Code(s): K80.50 - CALCULUS OF BILE DUCT W/O CHOLANGITIS OR CHOLECYST W/O OBST
[2017-10-29] MEDS: morphine CARPU-JECT 10 MG/1 ML DISP.SYRIN IVPUSH PRN (13:53)
--- NOTE | 2017-10-29 18:54 | PN ---
Progress Note (short form) - Note Progress Note: No acute events Pain improved MRCP reviewed with radiologist- filling defect in CBD seen GI called Vital Signs Period Temp Pulse Resp BP Sys/Hernandez Pulse Ox Last 24 Hr 98.1 F-99.2 F 81-92 18-20 135-156/68-80 96-97 Abd soft, minimal tenderness CBC,CMP WBC 8.9 K/mm3 (4.0-10.0) 10/29/17 06:43 RBC 4.56 M/mm3 (3.60-5.2) 10/29/17 06:43 Hgb 11.3 GM/dL (10.7-15.3) 10/29/17 06:43 Hct 35.8 % (32.4-45.2) 10/29/17 06:43 MCV 78.6 fl (80-96) L 10/29/17 06:43 MCH 24.8 pg (25.7-33.7) L 10/29/17 06:43 MCHC 31.5 g/dl (32.0-36.0) L 10/29/17 06:43 RDW 17.3 % (11.6-15.6) H 10/29/17 06:43 Plt Count 211 K/MM3 (134-434) 10/29/17 06:43 MPV 8.4 fl (7.5-11.1) 10/29/17 06:43 Neutrophils % 68.8 % (42.8-82.8) 10/29/17 06:43 Lymphocytes % 14.7 % (8-40) 10/29/17 06:43 Monocytes % 11.3 % (3.8-10.2) H 10/29/17 06:43 Eosinophils % 4.7 % (0-4.5) H D 10/29/17 06:43 Basophils % 0.5 % (0-2.0) 10/29/17 06:43 Sodium 141 mmol/L (136-145) 10/29/17 06:43 Potassium 3.6 mmol/L (3.5-5.1) 10/29/17 06:43 Chloride 107 mmol/L (98-107) 10/29/17 06:43 Carbon Dioxide 25 mmol/L (21-32) 10/29/17 06:43 Anion Gap 9 (8-16) 10/29/17 06:43 BUN 6 mg/dL (7-18) L 10/29/17 06:43 Creatinine 0.4 mg/dL (0.55-1.02) L 10/29/17 06:43 Creat Clearance w eGFR > 60 (>60) 10/29/17 06:43 Random Glucose 106 mg/dL (74-106) 10/29/17 06:43 Calcium 7.4 mg/dL (8.5-10.1) L 10/29/17 06:43 Phosphorus 2.5 mg/dL (2.5-4.9) 10/28/17 07:45 Magnesium 1.5 mg/dL (1.8-2.4) L 10/28/17 07:45 Total Bilirubin 0.7 mg/dL (0.2-1.0) 10/29/17 06:43 Direct Bilirubin 0.2 mg/dL (0.0-0.2) 10/29/17 06:43 AST 12 U/L (15-37) L 10/29/17 06:43 ALT 17 U/L (12-78) 10/29/17 06:43 Alkaline Phosphatase 82 U/L (45-117) 10/29/17 06:43 Creatine Kinase 39 IU/L (26-192) 10/26/17 23:35 Troponin I < 0.02 ng/ml (0.00-0.05) 10/26/17 23:35 Total Protein 6.1 g/dl (6.4-8.2) L 10/29/17 06:43 Albumin 2.6 g/dl (3.4-5.0) L 10/29/17 06:43 Total Amylase 27 U/L (25-115) 10/28/17 07:45 Lipase 118 U/L (73-393) 10/28/17 07:45 ERCP planned by GI tomorrow Antibiotics If clinically improves, continue antibiotics and will plan cholecystectomy in 6 weeks once inflammation resolves If worsens will need Interventional radiology for percutaneous cholecystostomy and then cholecystectomy in 6 weeks Patient agrees with the plan Problem List - Problems (1) Acute cholecystitis Code(s): K81.0 - ACUTE CHOLECYSTITIS (2) Choledocholithiasis Code(s): K80.50 - CALCULUS OF BILE DUCT W/O CHOLANGITIS OR CHOLECYST W/O OBST
[2017-10-30 08:58] LABS: ALBUMIN 2.6 g/dl (3.4-5.0); ANION GAP 8 (8-16); BILIRUBIN,TOTAL 0.6 mg/dL (0.2-1.0); BLOOD UREA NITROGEN 5 mg/dL (7-18); CALCIUM 7.8 mg/dL (8.5-10.1); CHLORIDE 107 mmol/L (98-107); CO2 27 mmol/L (21-32); GLUCOSE,RANDOM 97 mg/dL (74-106); POTASSIUM 3.8 mmol/L (3.5-5.1); SGOT/AST 16 U/L (15-37); SGPT/ALT 19 U/L (12-78); SODIUM 142 mmol/L (136-145)
[2017-10-30 08:59] LABS: ALK PHOS 79 U/L (45-117); BASO % 0.6 % (0-2.0); CREATININE 0.5 mg/dL (0.55-1.02); EOS % 5.9 % (0-4.5); HEMATOCRIT 35.8 % (32.4-45.2); HEMOGLOBIN 11.1 GM/dL (10.7-15.3); LYMPH % 14.2 % (8-40); MCH 24.6 pg (25.7-33.7); MCHC 31.1 g/dl (32.0-36.0); MEAN PLT VOLUME 8.5 fl (7.5-11.1); MONO % 10.6 % (3.8-10.2); NEUT % 68.7 % (42.8-82.8); PLATELET COUNT 220 K/MM3 (134-434); RBC 4.54 M/mm3 (3.60-5.2); RDW 16.8 % (11.6-15.6); TOT PROT 6.3 g/dl (6.4-8.2); WHITE BLOOD COUNT 8.2 K/mm3 (4.0-10.0)
[2017-10-30 09:00] LABS: INR 1.19 (0.82-1.09); PROTHROMBIN TIME (PATIENT) 13.5 SEC (9.98-11.88)
[2017-10-30] MEDS ORDERED: INDOMETHACIN 50 MG RECTAL SUPPOSITORY PR ONE (09:00)
[2017-10-30 09:03] LABS: ACTIVATED PTT 28.4 SECONDS (26.9-34.4)
[2017-10-30] MEDS ORDERED: PT OWN MED DRAWER 7, Y5N ONE (09:05)
[2017-10-30] MEDS: CEFTRIAXONE 1 G/50 ML PREMIX 50 ML IVPB SCH (09:16)
[2017-10-30] MEDS: TIOTROPIUM BROMIDE 18 MCG/INH (DEVICE W/ 5 CAPSULES) IH SCH (09:16)
[2017-10-30] MEDS: MAGNESIUM OXIDE 400 MG TABLET (FP) PO SCH ×2 (09:16→21:08)
[2017-10-30] MEDS: DEXTROSE 5%-LACTATED RINGERS 1,000 ML IV SCH (10:59)
[2017-10-30] MEDS ORDERED: ROCURONIUM BROMIDE 50 MG/5 ML VIAL ONE (12:47)
[2017-10-30] MEDS ORDERED: ONDANSETRON 4 MG/2 ML VIAL ONE (12:47)
[2017-10-30] MEDS ORDERED: NEOSTIGMINE METHYLSULFATE 0.5 MG/ML - 10 ML MDV ONE (12:48)
[2017-10-30] MEDS ORDERED: GLYCOPYRROLATE 0.2 MG/1 ML VIAL ONE ×4 (12:48)
[2017-10-30] MEDS ORDERED: DEXAMETHASONE SOD PHOSPHATE 10 MG/1 ML VIAL ONE (12:49)
--- NOTE | 2017-10-30 14:05 | PN ---
Progress Note, Physician Chief Complaint: Abdominal pain History of Present Illness: NAD, self ambulatory seen by GI surgery no abdominal pain eager to go home to be seen by Dr Judge's group ERCP today - Current Medication List Current Medications: Active Medications CEFTRIAXONE 1 G/50 ML PREMIX (Ceftriaxone 1 Gm-D5w Bag) 50 mls @ 100 mls/hr IVPB DAILY [facility] Stop: 10/31/17 14:14 Last Admin: 10/30/17 09:16 Dose: 100 mls/hr Dextrose/Lactated Ringer's (D5-Lr -) 1,000 mls @ 75 mls/hr IV ASDIR [facility] Last Admin: 10/30/17 10:59 Dose: 75 mls/hr Indomethacin (Indocin Suppository -) 50 mg LA ONCE ONE Stop: 10/30/17 09:01 Magnesium Oxide (Mag-Ox -) 400 mg PO BID [facility] Last Admin: 10/30/17 09:16 Dose: 400 mg Morphine Sulfate (Morphine Injection -) 4 mg IVPUSH Q6H PRN PRN Reason: PAIN LEVEL 7 - 10 Last Admin: 10/29/17 13:53 Dose: 4 mg Ondansetron HCl (Zofran Injection) 4 mg IVPUSH Q6H PRN PRN Reason: NAUSEA Tiotropium [place] (Spiriva -) 1 puff IH DAILY [facility] Last Admin: 10/30/17 09:16 Dose: 1 puff - Objective Vital Signs: Vital Signs Temperature 99 F 10/30/17 09:00 Pulse Rate 82 10/30/17 09:00 Respiratory Rate 18 10/30/17 09:00 Blood Pressure 128/86 10/30/17 09:00 O2 Sat by Pulse Oximetry (%) 97 10/29/17 21:00 Constitutional: Yes: Well Nourished, No Distress, Calm Cardiovascular: Yes: Regular Rate and Rhythm Respiratory: Yes: Regular Gastrointestinal: Yes: Soft, Tenderness, Epigastrium Musculoskeletal: Yes: WNL Extremities: Yes: WNL Edema: No Peripheral Pulses WNL: Yes Neurological: Yes: Alert, Oriented Psychiatric: Yes: Alert, Oriented Labs: CBC, BMP 10/30/17 07:00 10/30/17 07:00 INR, PTT INR 1.19 (0.82-1.09) H 10/30/17 07:00 Problem List - Problems (1) Acute cholecystitis Assessment/Plan: -IV abx -seen by GI surgery -IVF -morphine for pain management -ERCP Code(s): K81.0 - ACUTE CHOLECYSTITIS (2) Choledocholithiasis Code(s): K80.50 - CALCULUS OF BILE DUCT W/O CHOLANGITIS OR CHOLECYST W/O OBST (3) Leukocytosis Assessment/Plan: 2/2 cholecystitis -improving -monitor trend -afebrile Code(s): D72.829 - ELEVATED WHITE BLOOD CELL COUNT, UNSPECIFIED Assessment/Plan see problem list
[2017-10-30] MEDS ORDERED: LACTATED RINGERS SOLUTION 1,000 ML/1,000 ML INFUS.BAG IV SCH ×2 (14:45→21:00)
--- NOTE | 2017-10-30 14:47 | PN ---
Progress Note (short form) - Note Progress Note: GI Procedure NOte: Please see ERCP report. ERCP and sphincterotomy were performed to remove 2 stones from the CBD. Dr Tirso savage. Will need to observe for pancreatitis. Dr. Guerra will be covering this weekend.
--- NOTE | 2017-10-30 17:49 | PN ---
Progress Note (short form) - Note Progress Note: S/P ERCP- CBD stone x 2 removed Vital Signs Period Temp Pulse Resp BP Sys/Hernandez Pulse Ox Last 24 Hr 97.5 F-99 F 82-110 18-20 126-167/76-99 95-100 CBC,CMP WBC 8.2 K/mm3 (4.0-10.0) 10/30/17 07:00 RBC 4.54 M/mm3 (3.60-5.2) 10/30/17 07:00 Hgb 11.1 GM/dL (10.7-15.3) 10/30/17 07:00 Hct 35.8 % (32.4-45.2) 10/30/17 07:00 MCV 79.0 fl (80-96) L 10/30/17 07:00 MCH 24.6 pg (25.7-33.7) L 10/30/17 07:00 MCHC 31.1 g/dl (32.0-36.0) L 10/30/17 07:00 RDW 16.8 % (11.6-15.6) H 10/30/17 07:00 Plt Count 220 K/MM3 (134-434) 10/30/17 07:00 MPV 8.5 fl (7.5-11.1) 10/30/17 07:00 Neutrophils % 68.7 % (42.8-82.8) 10/30/17 07:00 Lymphocytes % 14.2 % (8-40) 10/30/17 07:00 Monocytes % 10.6 % (3.8-10.2) H 10/30/17 07:00 Eosinophils % 5.9 % (0-4.5) H 10/30/17 07:00 Basophils % 0.6 % (0-2.0) 10/30/17 07:00 Sodium 142 mmol/L (136-145) 10/30/17 07:00 Potassium 3.8 mmol/L (3.5-5.1) 10/30/17 07:00 Chloride 107 mmol/L (98-107) 10/30/17 07:00 Carbon Dioxide 27 mmol/L (21-32) 10/30/17 07:00 Anion Gap 8 (8-16) 10/30/17 07:00 BUN 5 mg/dL (7-18) L 10/30/17 07:00 Creatinine 0.5 mg/dL (0.55-1.02) L 10/30/17 07:00 Creat Clearance w eGFR > 60 (>60) 10/30/17 07:00 Random Glucose 97 mg/dL (74-106) 10/30/17 07:00 Calcium 7.8 mg/dL (8.5-10.1) L 10/30/17 07:00 Phosphorus 2.5 mg/dL (2.5-4.9) 10/28/17 07:45 Magnesium 1.5 mg/dL (1.8-2.4) L 10/28/17 07:45 Total Bilirubin 0.6 mg/dL (0.2-1.0) 10/30/17 07:00 Direct Bilirubin 0.2 mg/dL (0.0-0.2) 10/29/17 06:43 AST 16 U/L (15-37) 10/30/17 07:00 ALT 19 U/L (12-78) 10/30/17 07:00 Alkaline Phosphatase 79 U/L (45-117) 10/30/17 07:00 Creatine Kinase 39 IU/L (26-192) 10/26/17 23:35 Troponin I < 0.02 ng/ml (0.00-0.05) 10/26/17 23:35 Total Protein 6.3 g/dl (6.4-8.2) L 10/30/17 07:00 Albumin 2.6 g/dl (3.4-5.0) L 10/30/17 07:00 Total Amylase 27 U/L (25-115) 10/28/17 07:45 Lipase 118 U/L (73-393) 10/28/17 07:45 Antibiotics Can plan discharge on antibiotics Plan for cholecystectomy as outpatient Problem List - Problems (1) Acute cholecystitis Code(s): K81.0 - ACUTE CHOLECYSTITIS (2) Choledocholithiasis Code(s): K80.50 - CALCULUS OF BILE DUCT W/O CHOLANGITIS OR CHOLECYST W/O OBST
[2017-10-30] MEDS: METRONIDAZOLE 500 MG PREMIXED 500 MG/100 ML MG IVPB SCH (18:15)
[2017-10-30] MEDS: morphine CARPU-JECT 10 MG/1 ML DISP.SYRIN IVPUSH PRN (19:01)
[2017-10-30] MEDS: AMPICILLIN NA/SULBACTAM NA 1.5 GM in SODIUM CHLORIDE 100 ML IVPB SCH (20:31)
[2017-10-30] MEDS: ONDANSETRON 4 MG/2 ML VIAL IVPUSH PRN (22:19)
[2017-10-31] MEDS: morphine CARPU-JECT 10 MG/1 ML DISP.SYRIN IVPUSH PRN ×3 (00:15→18:42)
[2017-10-31] MEDS: AMPICILLIN NA/SULBACTAM NA 1.5 GM in SODIUM CHLORIDE 100 ML IVPB SCH ×3 (01:09→18:44)
[2017-10-31] MEDS: METRONIDAZOLE 500 MG PREMIXED 500 MG/100 ML MG IVPB SCH ×3 (01:09→17:39)
[2017-10-31] MEDS ORDERED: LACTATED RINGERS SOLUTION 1,000 ML/1,000 ML INFUS.BAG IV SCH ×2 (04:00→10:00)
[2017-10-31 08:57] LABS: BASO % 0.2 % (0-2.0); HEMATOCRIT 36.4 % (32.4-45.2); HEMOGLOBIN 11.1 GM/dL (10.7-15.3); LYMPH % 8.4 % (8-40); MCHC 30.3 g/dl (32.0-36.0); MEAN CELL VOLUME 78.9 fl (80-96); MEAN PLT VOLUME 8.7 fl (7.5-11.1); MONO % 10.5 % (3.8-10.2); NEUT % 80.9 % (42.8-82.8); PLATELET COUNT 257 K/MM3 (134-434); RBC 4.61 M/mm3 (3.60-5.2); RDW 17.5 % (11.6-15.6); WHITE BLOOD COUNT 12.5 K/mm3 (4.0-10.0)
[2017-10-31] MEDS ORDERED: PT OWN MED DRAWER 7, Y5N ONE ×2 (09:27→17:34)
[2017-10-31 09:33] LABS: ALBUMIN 2.8 g/dl (3.4-5.0); AMYLASE 525 U/L (25-115); ANION GAP 11 (8-16); BILIRUBIN,DIRECT 0.2 mg/dL (0.0-0.2); BLOOD UREA NITROGEN 9 mg/dL (7-18); CHLORIDE 102 mmol/L (98-107); CO2 26 mmol/L (21-32); CREATININE 0.6 mg/dL (0.55-1.02); GLUCOSE,RANDOM 87 mg/dL (74-106); POTASSIUM 3.9 mmol/L (3.5-5.1); SGOT/AST 24 U/L (15-37); SGPT/ALT 25 U/L (12-78); SODIUM 139 mmol/L (136-145); TOT PROT 6.9 g/dl (6.4-8.2)
[2017-10-31 09:38] LABS: ALK PHOS 86 U/L (45-117); BILIRUBIN,TOTAL 0.6 mg/dL (0.2-1.0)
[2017-10-31] MEDS: TIOTROPIUM BROMIDE 18 MCG/INH (DEVICE W/ 5 CAPSULES) IH SCH (09:38)
[2017-10-31] MEDS: MAGNESIUM OXIDE 400 MG TABLET (FP) PO SCH ×3 (09:39→22:15)
[2017-10-31 10:00] LABS: LIPASE 3079 U/L (73-393)
[2017-10-31] MEDS: ONDANSETRON 4 MG/2 ML VIAL IVPUSH PRN (12:36)
--- NOTE | 2017-10-31 15:43 | PN ---
GI Progress Note Subjective: GI F/U FOR DR ADAIR PT HAD ONSET OF N/VOM LAST EVENING FELT SEVEE PAIN 10/10 IN THE EPIGASTRIC REGION SHE CALLS IT A GB ATTACK NO F/C/S NO BM NO APPETITE - Objective Vital Signs: Vital Signs Temperature 97.9 F 10/31/17 14:46 Pulse Rate 75 10/31/17 14:46 Respiratory Rate 18 10/31/17 14:46 Blood Pressure 152/92 10/31/17 14:46 O2 Sat by Pulse Oximetry (%) 99 10/31/17 09:00 Constitutional: Calm, Mild Distress (+BS/ SOFT/ TENDER TO PALPATION INTHE EPIGASTRIC REGION NO M/R/G) Eyes: Yes: WNL Labs: CBC, BMP 10/31/17 08:00 10/31/17 08:00 INR, PTT INR 1.19 (0.82-1.09) H 10/30/17 07:00 Assessment/Plan 52 F WITH GALLSTONES/ CBD STONES S/P ERCP AND SPHINCTEROTOMY HAD ONSET OF N/V/ABD PAIN LAST EVENING SEVERE AND BIOCHEMICAL DATA AND RISE IN LIPASE TO SUPPORT POST-ERCP PANCREATITIS NO EVIDENCE OF END ORGAN DAMAGE PT WITHOUT ANY LFT ABNORMALITY/ NO CHOLANGITIS WOULD KEEP NPO RAISE IVF TO 200-250 CC/HR CONTINUE ABX F/U LAB DATA, AMYLASE/LIPASE/C-RP MD LYDIA
[2017-10-31] MEDS ORDERED: morphine CARPU-JECT 10 MG/1 ML DISP.SYRIN IVPUSH PRN (16:14)
--- NOTE | 2017-10-31 16:15 | PN ---
Progress Note, Physician Chief Complaint: Abdominal pain History of Present Illness: NAD, self ambulatory seen by GI Had epigastric pain 07/21 earlier N/V last evening - Current Medication List Current Medications: Active Medications Ampicillin Sodium/Sulbactam (Sodium 1.5 gm/ Sodium Chloride) 100 mls @ 200 mls/ hr IVPB Q8H-IV [facility] Last Admin: 10/31/17 10:53 Dose: 200 mls/hr Metronidazole (Flagyl 500mg Premixed Ivpb -) 500 mg in 100 mls @ 100 mls/hr IVPB Q8H-IV [facility] Last Admin: 10/31/17 09:39 Dose: 100 mls/hr Lactated Ringer's (Lactated Ringers Solution) 1,000 ml in 1,000 mls @ 125 mls/ hr IV ASDIR [facility] Last Admin: 10/31/17 09:37 Dose: 125 mls/hr Indomethacin (Indocin Suppository -) 50 mg [place] ONCE ONE Stop: 10/30/17 09:01 Magnesium Oxide (Mag-Ox -) 400 mg PO BID [facility] Last Admin: 10/31/17 09:39 Dose: 400 mg Morphine Sulfate (Morphine Injection -) 4 mg IVPUSH Q6H PRN PRN Reason: PAIN LEVEL 7 - 10 Last Admin: 10/31/17 08:11 Dose: 4 mg Ondansetron HCl (Zofran Injection) 4 mg IVPUSH Q6H PRN PRN Reason: NAUSEA Last Admin: 10/31/17 12:36 Dose: 4 mg Tiotropium [place] (Spiriva -) 1 puff IH DAILY [facility] Last Admin: 10/31/17 09:38 Dose: 1 puff - Objective Vital Signs: Vital Signs Temperature 97.9 F 10/31/17 14:46 Pulse Rate 75 10/31/17 14:46 Respiratory Rate 18 10/31/17 14:46 Blood Pressure 152/92 10/31/17 14:46 O2 Sat by Pulse Oximetry (%) 99 10/31/17 09:00 Constitutional: Yes: Well Nourished, Calm, Mild Distress Cardiovascular: Yes: Regular Rate and Rhythm Respiratory: Yes: Regular Gastrointestinal: Yes: Tenderness, Epigastrium Musculoskeletal: Yes: WNL Extremities: Yes: WNL Edema: No Peripheral Pulses WNL: Yes Neurological: Yes: Alert, Oriented Psychiatric: Yes: Alert, Oriented Labs: CBC, BMP 10/31/17 08:00 10/31/17 08:00 INR, PTT INR 1.19 (0.82-1.09) H 10/30/17 07:00 Problem List - Problems (1) Acute cholecystitis Assessment/Plan: -IV abx -seen by GI -IVF increased -NPO -morphine for pain management Code(s): K81.0 - ACUTE CHOLECYSTITIS (2) Choledocholithiasis Code(s): K80.50 - CALCULUS OF BILE DUCT W/O CHOLANGITIS OR CHOLECYST W/O OBST (3) Leukocytosis Assessment/Plan: 2/2 pancreatitis post ERCP -monitor trend -afebrile Code(s): D72.829 - ELEVATED WHITE BLOOD CELL COUNT, UNSPECIFIED (4) Status post endoscopic retrograde cholangiopancreatography Code(s): Z98.890 - OTHER SPECIFIED POSTPROCEDURAL STATES (5) Pancreatitis Assessment/Plan: -Pancreatic enzymes and CRP elevated -Post ERCP -seen by GI -Increase IVF -Increase Morphine for pain management Code(s): K85.90 - ACUTE PANCREATITIS WITHOUT NECROSIS OR INFECTION, UNSP Assessment/Plan see problem list
[2017-10-31] MEDS: LACTATED RINGERS SOLUTION 1,000 ML/1,000 ML INFUS.BAG IV SCH ×2 (16:53→18:44)
[2017-11-01] MEDS: LACTATED RINGERS SOLUTION 1,000 ML/1,000 ML INFUS.BAG IV SCH ×5 (00:31→21:05)
[2017-11-01] MEDS ORDERED: PT OWN MED DRAWER 7, Y5N ONE ×3 (01:16→16:00)
[2017-11-01] MEDS: METRONIDAZOLE 500 MG PREMIXED 500 MG/100 ML MG IVPB SCH ×3 (01:24→17:14)
[2017-11-01] MEDS: AMPICILLIN NA/SULBACTAM NA 1.5 GM in SODIUM CHLORIDE 100 ML IVPB SCH ×3 (01:24→17:14)
[2017-11-01] MEDS: morphine CARPU-JECT 10 MG/1 ML DISP.SYRIN IVPUSH PRN (08:37)
[2017-11-01 08:41] LABS: BASO % 0.2 % (0-2.0); EOS % 0.2 % (0-4.5); HEMATOCRIT 34.5 % (32.4-45.2); HEMOGLOBIN 10.7 GM/dL (10.7-15.3); LYMPH % 5.7 % (8-40); MCH 24.2 pg (25.7-33.7); MEAN CELL VOLUME 77.9 fl (80-96); MEAN PLT VOLUME 8.4 fl (7.5-11.1); MONO % 9.4 % (3.8-10.2); NEUT % 84.5 % (42.8-82.8); PLATELET COUNT 225 K/MM3 (134-434); RBC 4.43 M/mm3 (3.60-5.2); RDW 17.2 % (11.6-15.6); WHITE BLOOD COUNT 17.6 K/mm3 (4.0-10.0)
[2017-11-01 08:57] LABS: ALBUMIN 2.7 g/dl (3.4-5.0); AMYLASE 90 U/L (25-115); ANION GAP 9 (8-16); BLOOD UREA NITROGEN 7 mg/dL (7-18); CALCIUM 7.7 mg/dL (8.5-10.1); CHLORIDE 103 mmol/L (98-107); CO2 26 mmol/L (21-32); CREATININE 0.4 mg/dL (0.55-1.02); GLUCOSE,RANDOM 57 mg/dL (74-106); POTASSIUM 3.7 mmol/L (3.5-5.1); SODIUM 138 mmol/L (136-145)
[2017-11-01 08:59] LABS: ALK PHOS 79 U/L (45-117); BILIRUBIN,TOTAL 0.8 mg/dL (0.2-1.0); SGOT/AST 22 U/L (15-37); SGPT/ALT 26 U/L (12-78); TOT PROT 6.2 g/dl (6.4-8.2)
[2017-11-01 09:00] LABS: LIPASE 228 U/L (73-393)
[2017-11-01] MEDS: MAGNESIUM OXIDE 400 MG TABLET (FP) PO SCH ×2 (09:00→21:06)
[2017-11-01] MEDS: TIOTROPIUM BROMIDE 18 MCG/INH (DEVICE W/ 5 CAPSULES) IH SCH (09:00)
--- NOTE | 2017-11-01 14:26 | PN ---
GI Progress Note Subjective: GI F/U FOR DR ADAIR NO COMPLAINTS TODAY PAIN RESOLVED FEELS BETTER NO N/V/F/C/S FEELS VERY HUNGRY AND WOULD LIKE SOLID FOOD - Objective Vital Signs: Vital Signs Temperature 98.3 F 11/01/17 09:00 Pulse Rate 100 H 11/01/17 09:00 Respiratory Rate 18 11/01/17 09:00 Blood Pressure 148/85 11/01/17 09:00 O2 Sat by Pulse Oximetry (%) 98 10/31/17 22:00 Constitutional: Well Nourished, No Distress, Calm Eyes: Yes: WNL (+BS/ SOFT/NT) Labs: CBC, BMP 11/01/17 07:30 11/01/17 07:35 INR, PTT INR 1.19 (0.82-1.09) H 10/30/17 07:00 Assessment/Plan 52F WITH CHOLELITHIASIS CBD STONES S/P ERCP WITH STONE EXTRACTION AND POST-ERCP PANCREATITIS CLINICALLY RESOLVED/ PATIENT LOOKS MUCH IMPROVED COMPARED TO YESTERDAY AGREE WITH ADVANCING DIET TO CLEARS--IF TOLERATING WOULD ADVANCE TO SOLIDS PO PT NEEDS CHOLECYSTECTOMY F/U LABS/ OBSERVE MD LYDIA
[2017-11-02] MEDS: LACTATED RINGERS SOLUTION 1,000 ML/1,000 ML INFUS.BAG IV SCH (02:00)
[2017-11-02] MEDS ORDERED: PT OWN MED DRAWER 7, Y5N ONE ×2 (02:44→09:37)
[2017-11-02] MEDS: AMPICILLIN NA/SULBACTAM NA 1.5 GM in SODIUM CHLORIDE 100 ML IVPB SCH ×3 (02:47→17:49)
[2017-11-02] MEDS: METRONIDAZOLE 500 MG PREMIXED 500 MG/100 ML MG IVPB SCH ×3 (02:47→17:50)
[2017-11-02] MEDS: TIOTROPIUM BROMIDE 18 MCG/INH (DEVICE W/ 5 CAPSULES) IH SCH (09:47)
[2017-11-02] MEDS: MAGNESIUM OXIDE 400 MG TABLET (FP) PO SCH ×2 (09:47→21:35)
--- NOTE | 2017-11-02 10:43 | PN ---
Progress Note (short form) - Note Progress Note: Pt states that she feels much better. Tolerating clears, abd pain improved. Vital Signs Period Temp Pulse Resp BP Sys/Hernandez Pulse Ox Last 24 Hr 97.8 F-99.1 F 84-95 -18 136-156/78-88 97 GEN: appears comfortable ABD: soft, non-distended, non-tender Laboratory Tests 11/01/17 11/01/17 07:30 07:35 WBC 17.6 H D Hgb 10.7 Hct 34.5 Total Bilirubin 0.8 D Total Amylase 90 Lipase 228 A/P: 52 yo female with GS, s/p ERCP with removal of stones, resolving pancreatitis CBC ordered for today Adv diet as tolerated S/W Dr. Chahal and will plan for elective GB removal in 5-6 weeks, f/u in 4 weeks to schedule outpt GB Recommend discharge to home with antibiotics <Griselda Ann - Last Filed: 11/02/17 10:46> - Note Progress Note: Agree WBC and amylase/lipase improving Can discharge home on antibiotics when WBC normalized and plan cholecystectomy as outpatient <Sam Chahal - Last Filed: 11/02/17 21:15> Problem List - Problems (1) Acute cholecystitis Code(s): K81.0 - ACUTE CHOLECYSTITIS (2) Choledocholithiasis Code(s): K80.50 - CALCULUS OF BILE DUCT W/O CHOLANGITIS OR CHOLECYST W/O OBST <Sam Chahal - Last Filed: 11/02/17 21:15>
[2017-11-02 11:20] LABS: BASO % 0.6 % (0-2.0); EOS % 1.2 % (0-4.5); HEMATOCRIT 34.3 % (32.4-45.2); HEMOGLOBIN 10.7 GM/dL (10.7-15.3); LYMPH % 7.1 % (8-40); MCH 24.3 pg (25.7-33.7); MCHC 31.2 g/dl (32.0-36.0); MEAN CELL VOLUME 77.8 fl (80-96); MEAN PLT VOLUME 8.2 fl (7.5-11.1); MONO % 9.5 % (3.8-10.2); NEUT % 81.6 % (42.8-82.8); PLATELET COUNT 228 K/MM3 (134-434); RBC 4.41 M/mm3 (3.60-5.2); RDW 16.9 % (11.6-15.6); WHITE BLOOD COUNT 14.9 K/mm3 (4.0-10.0)
--- NOTE | 2017-11-02 12:32 | DS ---
Physical Examination Vital Signs: Vital Signs Temperature 99.1 F 11/02/17 05:43 Pulse Rate 95 H 11/02/17 05:43 Respiratory Rate 18 11/02/17 09:00 Blood Pressure 156/88 11/02/17 05:43 O2 Sat by Pulse Oximetry (%) 94 L 11/02/17 09:00 Constitutional: Yes: Calm Neck: Yes: Trachea Midline Cardiovascular: Yes: Regular Rate and Rhythm, S1, S2 Respiratory: Yes: CTA Bilaterally Gastrointestinal: Yes: Normal Bowel Sounds, Soft Edema: No Labs: CBC, BMP 11/02/17 11:05 11/01/17 07:35 Discharge Summary Reason For Visit: BILIARY COLIC Current Active Problems Acute cholecystitis (Acute) Biliary colic (Acute) Choledocholithiasis (Acute) Cholelithiasis (Acute) Leukocytosis (Acute) Pancreatitis (Acute) Status post endoscopic retrograde cholangiopancreatography (Acute) Hospital Course: Admission Chief Complaint: RUQ pain nausea and vomtting for 3 days History of Present Illness: Patient is a 52 year old female with a significant PMHx of COPD (current pack a day smoker)ERCP done in December, who present to the ED for epigastric pain similar to her "gallbladder" attack. Patient describes her pain as severe cramping that radiates throughout her ribcage. Patient states she has been nauseous, forced vomiting with thick clear/yellow tinted mucous, unable to eat for 2 days. She denies any fever, urinary complaints. Denies any recent travel. Allergies: denies Family history: maternal CAD & diabetes Social history: pack a day smoker PCP: Koki Jolley GI: Vamsi Judge per patient her pain started on thursday and was intially intermittent then became constant and severe so came to ER in ER found to have elevated wbc and bilirubin History Source: Patient - Past Medical History Pulmonary: Yes: COPD Hepatobiliary: Yes: Cholelithiasis in hospital: s/p ERCP with sphincterotomy 2 stones extracted then developed pancreatitis- amylase and lipase now trending down will advance diet and send home on po antibiotic and follow up with surgeon in 4 weeks for cholecystectomy Condition: Fair - Instructions Referrals: Koki Jolley MD [Primary Care Provider] - Sam Chahal MD [Staff Physician] - 1 Month (call to make appoitnment ) Disposition: HOME - Home Medications Comprehensive Discharge Medication List: Ambulatory Orders Albuterol Sulfate [Proventil HFA Inhaler -] 1 - 2 inh PO TID PRN #1 inhaler Tiotropium [place] [Spiriva] 1 inh PO PRN 12/22/16
[2017-11-02] MEDS ORDERED: MAGNESIUM SULF 50% (8.12 MEQ/2 ML-1 GM VIAL) IVPB ONE (13:18)
[2017-11-02] MEDS ORDERED: MAGNESIUM SULF 50% (8.12 MEQ/2 ML-1 GM VIAL) ONE (13:25)
[2017-11-02] MEDS ORDERED: MAGNESIUM 1GM/D5W - 1 GM/100 ML IVPB IVPB ONE (14:00)
[2017-11-02 18:43] VITALS: TEMP 98.6
[2017-11-02] MEDS ORDERED: hydrALAZINE HCL 25 MG TABLET (FP) PO SCH (22:00)
[2017-11-03] MEDS: METRONIDAZOLE 500 MG PREMIXED 500 MG/100 ML MG IVPB SCH ×2 (01:10→09:28)
[2017-11-03] MEDS: AMPICILLIN NA/SULBACTAM NA 1.5 GM in SODIUM CHLORIDE 100 ML IVPB SCH ×2 (02:19→10:37)
[2017-11-03 08:14] VITALS: BP 133/75; PULSE 82
[2017-11-03] MEDS ORDERED: PT OWN MED DRAWER 7, Y5N ONE (09:24)
[2017-11-03] MEDS: MAGNESIUM OXIDE 400 MG TABLET (FP) PO SCH (09:28)
[2017-11-03] MEDS: TIOTROPIUM BROMIDE 18 MCG/INH (DEVICE W/ 5 CAPSULES) IH SCH (09:39)
== END 2017-11-03 11:52 | disposition home or self-care (01) | DRG 444 ==
LOC: JER 19:06 → JERBED 10-27 12:09 → J6S 10-28 00:34
PROVIDERS: ADMIT Family Medicine; ATTEND Family Medicine
PROC: BF10YZZ Fluoroscopy of Bile Ducts using Other Contrast (ICD-10-PCS; 2017-10-30)
PROC: 0F7D8DZ Dilation of Pancreatic Duct with Intraluminal Device, Via Natural or Artificial Opening Endoscopic (ICD-10-PCS; 2017-10-30)
PROC: 0FC98ZZ Extirpation of Matter from Common Bile Duct, Via Natural or Artificial Opening Endoscopic (ICD-10-PCS; principal; 2017-10-30 13:00)
DX: K80.00 Calculus of gallbladder with acute cholecystitis without obstruction (principal); K85.90 Acute pancreatitis without necrosis or infection, unspecified; D72.829 Elevated white blood cell count, unspecified; F17.210 Nicotine dependence, cigarettes, uncomplicated; J44.9 Chronic obstructive pulmonary disease, unspecified
CPT/HCPCS: 36415; 74182-TC; 74330-TC; 76705-TC; 78226-TC; 80053; 82150; 82248; 82550; 83690; 83735; 84100; 84484; 85025; 85610; 85730; 86140; 86850; 86900; 86901; 93005; 93010; 99285-25; A9537; J1100

== ENCOUNTER 2017-12-17 06:24 | Day surgery (SDC) | payer OTHER ==
[2017-12-15 16:37] VITALS: BMI 31.7
[2017-12-17] MEDS ORDERED: ONDANSETRON 4 MG/2 ML VIAL IVPUSH PRN (07:53)
[2017-12-17] MEDS ORDERED: MIDAZOLAM HCL 2 MG/2 ML SINGLE DOSE VIAL ONE (07:58)
[2017-12-17] MEDS ORDERED: LACTATED RINGERS SOLUTION 1,000 ML IV SCH (08:00)
[2017-12-17] MEDS ORDERED: INDOCYANINE GREEN 25 MG/10 ML VIAL IVPUSH ONE (08:10)
--- NOTE | 2017-12-17 08:19 | HP ---
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 History of Recent Travel: No Home Medications - Allergies Allergies/Adverse Reactions: Allergies Allergy/AdvReac Type Severity Reaction Status Date / Time No Known Allergies Allergy Verified 01/06/17 11:00 - Home Medications Home Medications: Ambulatory Orders Albuterol Sulfate [Proventil HFA Inhaler -] 1 - 2 inh PO TID PRN #1 inhaler Tiotropium [place] [Spiriva] 1 inh PO DAILY 12/22/16 Family Disease History - Family Disease History Family Disease History: Other: Father (: 40's CHF), Mother (: 70's: blood dyscrasia), Sister (1, healthy), Son (none), Daughter (none) Review of Systems - Review of Systems Constitutional: denies: Chills, Fever Neck: reports: No Symptoms Cardiovascular: denies: Chest Pain Respiratory: denies: Cough Gastrointestinal: denies: Abdominal Pain Neurological: reports: No Symptoms Pain Intensity: 0 Physical Examination Vital Signs: Vital Signs Temperature 97.9 F 12/17/17 06:47 Pulse Rate 94 H 12/17/17 06:47 Respiratory Rate 20 12/17/17 06:47 Blood Pressure 132/53 12/17/17 06:47 O2 Sat by Pulse Oximetry (%) 96 12/17/17 06:48 HENT: Yes: WNL Neck: Yes: WNL Cardiovascular: Yes: Regular Rate and Rhythm Respiratory: Yes: Regular Gastrointestinal: Yes: Soft. No: Distention, Tenderness, Tenderness, Rebound Extremities: Yes: WNL Neurological: Yes: Alert, Oriented Problem List - Problems (1) Recurrent pancreatitis Code(s): K86.1 - OTHER CHRONIC PANCREATITIS (2) Pancreatitis due to common bile duct stone Code(s): K85.90 - ACUTE PANCREATITIS WITHOUT NECROSIS OR INFECTION, UNSP; K80.50 - CALCULUS OF BILE DUCT W/O CHOLANGITIS OR CHOLECYST W/O OBST Assessment/Plan Robotic possible open cholecystectomy Risks and benefits explained Understands and agrees
[2017-12-17] MEDS ORDERED: ROCURONIUM BROMIDE 50 MG/5 ML VIAL ONE (09:06)
[2017-12-17] MEDS ORDERED: PROPOFOL 20 ML ONE ×3 (09:06→10:25)
[2017-12-17] MEDS ORDERED: ceFAZolin SODIUM 1 GM VIAL IVPB ONE (09:15)
[2017-12-17] MEDS ORDERED: GLYCOPYRROLATE 0.2 MG/1 ML VIAL ONE (10:14)
[2017-12-17] MEDS ORDERED: LIDOCAINE HCL 2% JELLY (5 ML/TUBE) ONE (10:14)
[2017-12-17] MEDS ORDERED: LIDOCAINE HCL/PF 2% SDV 5ML VIAL ONE (10:14)
[2017-12-17] MEDS ORDERED: DEXAMETHASONE SOD PHOSPHATE 4 MG/1 ML VIAL ONE (10:14)
[2017-12-17] MEDS ORDERED: NEOSTIGMINE METHYLSULFATE 0.5 MG/ML - 10 ML MDV ONE (10:17)
[2017-12-17] MEDS ORDERED: BUPIVACAINE HCL/PF 0.5% (5MG/ML) 10 ML VIAL IJ ONE (10:37)
[2017-12-17 12:11] LABS: BASO % 0.5 % (0-2.0); EOS % 2.4 % (0-4.5); HEMOGLOBIN 10.9 GM/dL (10.7-15.3); LYMPH % 8.3 % (8-40); MCH 25.5 pg (25.7-33.7); MEAN CELL VOLUME 79.7 fl (80-96); MEAN PLT VOLUME 8.6 fl (7.5-11.1); MONO % 5.2 % (3.8-10.2); NEUT % 83.6 % (42.8-82.8); PLATELET COUNT 211 K/MM3 (134-434); RBC 4.26 M/mm3 (3.60-5.2); RDW 19.7 % (11.6-15.6); WHITE BLOOD COUNT 13.1 K/mm3 (4.0-10.0)
[2017-12-17 12:39] LABS: ALBUMIN 2.8 g/dl (3.4-5.0); ALK PHOS 111 U/L (45-117); ANION GAP 9 (8-16); BILIRUBIN,TOTAL 0.6 mg/dL (0.2-1.0); BLOOD UREA NITROGEN 15 mg/dL (7-18); CALCIUM 8.1 mg/dL (8.5-10.1); CHLORIDE 103 mmol/L (98-107); CO2 28 mmol/L (21-32); CREATININE 0.8 mg/dL (0.55-1.02); GLUCOSE,RANDOM 118 mg/dL (74-106); POTASSIUM 4.4 mmol/L (3.5-5.1); SGOT/AST 49 U/L (15-37); SGPT/ALT 38 U/L (12-78); SODIUM 140 mmol/L (136-145); TOT PROT 6.4 g/dl (6.4-8.2)
--- NOTE | 2017-12-17 13:26 | OP ---
Operative Note - Note: Operative Date: 12/17/17 Pre-Operative Diagnosis: Recurrent biliary pancreatitis Operation: Robotic cholecystectomy Post-Operative Diagnosis: Same as Pre-op Surgeon: Sam Chahal Bone Drier Operator: Dwight Hernandez Anesthesia: General Specimens Removed: Gallbladder Estimated Blood Loss (mls): 50 Operative Report Dictated: Yes
[2017-12-17 13:37] VITALS: TEMP 98.1
[2017-12-17] MEDS ORDERED: oxyCODONE HCL 5 MG TABLET PO ONE ×2 (13:59→14:00)
[2017-12-17] MEDS ORDERED: oxyCODONE HCL 5 MG TABLET ONE (14:00)
[2017-12-17] MEDS ORDERED: oxyCODONE HCL 5 MG TABLET PO PRN (14:06)
[2017-12-17 15:30] VITALS: BP 140/73; PULSE 86
--- NOTE | 2017-12-17 17:31 | SPEC ---
DATE OF OPERATION: 12/17/2017 SURGEON: Vera Chahal MD CRAFT RECRUITER: Dwight Hernandez MD PREOPERATIVE DIAGNOSIS: Recurrent biliary pancreatitis. POSTOPERATIVE DIAGNOSIS: Recurrent biliary pancreatitis. PROCEDURE: Robotic cholecystectomy. SPECIMEN: Gallbladder. ESTIMATED BLOOD LOSS: 50 mL DRAINS: None. ANESTHESIA: GET. REASON FOR PROCEDURE: This is a 52-year-old female who presented previously to the hospital with recurrent episodes of pancreatitis requiring multiple ERCPs, sphincterotomies, and stone extractions. Because of this, she was consented for an elective robotic, possible open cholecystectomy once her pancreatitis episodes resolved. The risks and benefits of the procedure were explained. RISKS AND BENEFITS: The risks and benefits of a Robotic laparoscopic, possible open cholecystectomy were explained. These included bleeding, infection, hernia, CA, DVT, PE, injury to surrounding structures including the liver, colon, bowel, bile ducts, vessel injury, nerve injury, bile leak, and retained stones as some of the possible complications. The patient understood and signed informed consent. DESCRIPTION OF PROCEDURE: The patient was placed supine on the operating room table. The patient underwent general endotracheal intubation. The abdomen was prepped and draped in the usual sterile fashion. Time-out was performed. A periumbilical incision was made, and entrance into the abdominal cavity was attained using an 8-mm robotic trocar under direct visualization with the laparoscope. Pneumoperitoneum was established. Subsequently, an 8-mm robotic trocar was placed in the left lateral abdominal wall, and two 8-mm robotic trocars were placed in the right abdominal wall. The patient was placed in reverse Trendelenburg, [id number] position. The robot was brought over the field and docked. Dissection was performed at the console. The gallbladder was retracted cephalad and laterally. Any adherent omentum was carefully freed and dissected. The peritoneum was dissected and opened. The cystic duct followed by the cystic artery was carefully dissected. Firefly technology was used to confirm anatomy. At this point, the cystic duct followed by the cystic artery was clipped and transected. The gallbladder was removed off the liver bed using electrocautery. Hemostasis was achieved using electrocautery. The gallbladder was placed in an EndoCatch bag. Copious irrigation and suction were performed until clear. The gallbladder was removed from the abdominal cavity and sent off the field. All robotic instruments were removed. The robot was undocked and removed from the field. The fascia at the gallbladder extraction site was closed using a 0 Vicryl suture. All incision sites were irrigated and Marcaine was injected. Hemostasis of the incision sites was noted. All incision sites were closed using 4-0 Biosyn. Sterile dressings were applied. The patient tolerated the procedure well and was transferred to the recovery room in stable condition. Of note, the gallbladder was noted to be extremely indurated with hydrops of the gallbladder as well as some murky fluid from within the gallbladder as well. There were extensive adhesions around the gallbladder to the liver. After the gallbladder was removed, copious suction and irrigation was performed until clear. Because of the findings of the hydrops and purulence of the gallbladder, she was prescribed antibiotics as well to continue at home. Patient tolerated the procedure well, transferred to recovery room in stable condition. VERA CHAHAL M.D. DON/[id number]
--- NOTE | 2017-12-18 13:59 | PATH ---
Surgical Pathology Report Patient Name: RASHMI ESCOBAR [facility]. Rec. #: [id number] /Age/Gender: 1965 (Age: 52) / F Account: [id number] Location: [facility] SURGICAL Taken: 12/17/2017 Received: 12/17/2017 Reported: 12/18/2017 Physicians: Sam Chahal M.D. Specimen(s) Received GALLBLADDER Clinical History Calculus of gallbladder with chronic cholecystitis Final Diagnosis GALLBLADDER, ROBOTIC ASSISTED LAPAROSCOPIC CHOLECYSTECTOMY: CHRONIC CHOLECYSTITIS WITH CHOLELITHIASIS. Electronically Signed Nohemi Young M.D. Gross Description Received in formalin, labeled "gallbladder," is a 10.5 x 3.0 x 2.6 cm. gallbladder with a 0.2 cm. in length portion of cystic duct attached. The outer surface is dai-pink and varies from smooth to shaggy. The lumen contains red blood as well as multiple green, irregular to fragmented choleliths ranging from 0.1-1.6 cm in greatest dimension. The mucosa is hyperemic. The wall of the gallbladder ranges from 0.1-0.6 cm. in thickness. Produce Field Merchandiser sections are submitted in one cassette. 12/17/201712/17/2017
== END 2017-12-17 16:15 | disposition home or self-care (01) ==
LOC: JASU-SURG 06:24
PROVIDERS: ATTEND Surgery
PROC: 8E0W4CZ Robotic Assisted Procedure of Trunk Region, Percutaneous Endoscopic Approach (ICD-10-PCS; 2017-12-17)
PROC: 0FT44ZZ Resection of Gallbladder, Percutaneous Endoscopic Approach (ICD-10-PCS; principal; 2017-12-17 08:00)
DX: K86.1 Other chronic pancreatitis (principal); K82.1 Hydrops of gallbladder; K80.80 Other cholelithiasis without obstruction; J44.9 Chronic obstructive pulmonary disease, unspecified; Z72.0 Tobacco use
CPT/HCPCS: 47562; S2900; 36415; 80053; 84702; 84703; 85025; 88304-TC; 94760

== ENCOUNTER 2022-12-26 13:26 | Inpatient (IN) | payer OTHER ==
[2022-12-26 15:24] LABS: HEMATOCRIT 20.7 % (32.4-45.2); MCHC 25.9 g/dl (32.0-36.0); MEAN CELL VOLUME 56.7 fl (80-96); MEAN PLT VOLUME 8.3 fl (7.5-11.1); PLATELET COUNT 167 10^3/uL (134-434); RBC 3.64 M/mm3 (3.60-5.2); RDW 27.8 % (11.6-15.6); RETICULOCYTES 1.75 % (0.5-1.5); WHITE BLOOD COUNT 7.4 K/mm3 (4.0-10.0)
[2022-12-26 15:28] LABS: MCH 14.7 pg (25.7-33.7)
[2022-12-26 15:29] LABS: INR 1.17 (0.83-1.09); PROTHROMBIN TIME (PATIENT) 13.6 SEC (9.7-13.0)
[2022-12-26 15:31] LABS: ACTIVATED PTT 31.3 SECONDS (25.2-36.5); HEMOGLOBIN 5.4 GM/dL (10.7-15.3)
[2022-12-26 15:50] LABS: ANISOCYTOSIS 3+; MACROCYTOSIS 0; TEAR DROP CELLS 1+
[2022-12-26 15:51] LABS: BLOOD UREA NITROGEN 15.7 mg/dL (7-18)
[2022-12-26 15:52] LABS: ALBUMIN 3.3 g/dl (3.4-5.0)
[2022-12-26 15:54] LABS: CREATININE 0.5 mg/dL (0.55-1.3)
[2022-12-26 15:56] LABS: TOT PROT 6.9 g/dl (6.4-8.2)
[2022-12-26 16:08] LABS: EPI CELLS >36 /uL (0-25.1); HYALINE CASTS 3 /uL (0-3.1); URINE APPEARANCE CLEAR; URINE BACTERIA 44 /uL (0-1359); URINE BILIRUBIN NEGATIVE (NEGATIVE); URINE COLOR YELLOW; URINE GLUCOSE (UA) NEGATIVE (NEGATIVE); URINE KETONE NEGATIVE (NEGATIVE); URINE LEUK ESTERASE TRACE (NEGATIVE); URINE NITRITE NEGATIVE (NEGATIVE); URINE PROTEIN TRACE (NEGATIVE); URINE RBC 14 /uL (0-23.9); URINE WBC 27 /uL (0-25.8)
[2022-12-26] MEDS ORDERED: ACETAMINOPHEN 325 MG TABLET (FP) PO PRN (20:11)
[2022-12-26 20:19] LABS: HEMATOCRIT 21.4 % (32.4-45.2); MCHC 29.3 g/dl (32.0-36.0); MEAN CELL VOLUME 61.9 fl (80-96); MEAN PLT VOLUME 8.5 fl (7.5-11.1); PLATELET COUNT 116 10^3/uL (134-434); RBC 3.46 M/mm3 (3.60-5.2); RDW 36.2 % (11.6-15.6); WHITE BLOOD COUNT 7.3 K/mm3 (4.0-10.0)
[2022-12-26 20:28] LABS: MCH 18.1 pg (25.7-33.7)
[2022-12-26 20:29] LABS: HEMOGLOBIN 6.3 GM/dL (10.7-15.3)
[2022-12-26 20:30] LABS: ADD RBC MORPHOLOGY YES
[2022-12-26 21:13] LABS: ANISOCYTOSIS 3+; MACROCYTOSIS 1+; OVALOCYTE 1+; TEAR DROP CELLS 1+
[2022-12-26] MEDS ORDERED: amLODIPine BESYLATE 5 MG TABLET (FP) PO ONE (21:57)
[2022-12-26] MEDS ORDERED: amLODIPine BESYLATE 5 MG TABLET (FP) ONE (22:09)
[2022-12-26] MEDS: LATANOPROST 0.005% OPHTH SOLN 2.5ML BOTTLE OU SCH (22:31)
[2022-12-27] MEDS: LATANOPROST 0.005% OPHTH SOLN 2.5ML BOTTLE OU SCH ×2 (04:20→21:12)
[2022-12-27 06:58] LABS: CALCIUM 7.8 mg/dL (8.5-10.1)
[2022-12-27 06:59] LABS: BLOOD UREA NITROGEN 12.4 mg/dL (7-18)
[2022-12-27 07:02] LABS: CREATININE 0.4 mg/dL (0.55-1.3); PHOSPHOROUS 2.7 mg/dL (2.5-4.9)
[2022-12-27 07:44] LABS: BASO % 1.8 % (0-2.0); EOS % 3.2 % (0-4.5); HEMATOCRIT 20.1 % (32.4-45.2); LYMPH % 25.6 % (8-40); MCHC 30.5 g/dl (32.0-36.0); MEAN CELL VOLUME 60.1 fl (80-96); MEAN PLT VOLUME 8.3 fl (7.5-11.1); MONO % 12.4 % (3.8-10.2); PLATELET COUNT 105 10^3/uL (134-434); RBC 3.35 M/mm3 (3.60-5.2); WHITE BLOOD COUNT 4.8 K/mm3 (4.0-10.0)
[2022-12-27 07:47] LABS: MCH 18.3 pg (25.7-33.7)
[2022-12-27 07:48] LABS: HEMOGLOBIN 6.1 GM/dL (10.7-15.3)
[2022-12-27 13:05] LABS: HEMATOCRIT 26.6 % (32.4-45.2); HEMOGLOBIN 8.1 GM/dL (10.7-15.3); MCH 19.4 pg (25.7-33.7); MCHC 30.4 g/dl (32.0-36.0); MEAN CELL VOLUME 63.8 fl (80-96); PLATELET COUNT 102 10^3/uL (134-434); RBC 4.16 M/mm3 (3.60-5.2); RDW 36.3 % (11.6-15.6); WHITE BLOOD COUNT 7.2 K/mm3 (4.0-10.0)
[2022-12-27] MEDS: TIOTROPIUM/OLODATEROL HCL (STIOLTO) 4 GM INHALER IH SCH (14:34)
[2022-12-27 15:23] VITALS: BMI 28.8
[2022-12-28 08:52] LABS: HEMATOCRIT 26.7 % (32.4-45.2); HEMOGLOBIN 8.2 GM/dL (10.7-15.3); MCHC 30.6 g/dl (32.0-36.0); MEAN CELL VOLUME 64.2 fl (80-96); MEAN PLT VOLUME 8.6 fl (7.5-11.1); RBC 4.16 M/mm3 (3.60-5.2); RDW 36.3 % (11.6-15.6); WHITE BLOOD COUNT 5.9 K/mm3 (4.0-10.0)
[2022-12-28 08:55] LABS: MCH 19.6 pg (25.7-33.7)
[2022-12-28 10:08] LABS: PLATELET COUNT 82 10^3/uL (134-434)
[2022-12-28] MEDS: TIOTROPIUM/OLODATEROL HCL (STIOLTO) 4 GM INHALER IH SCH (13:34)
[2022-12-28] MEDS: LATANOPROST 0.005% OPHTH SOLN 2.5ML BOTTLE OU SCH (21:31)
[2022-12-29 08:53] LABS: BASO % 1.8 % (0-2.0); HEMATOCRIT 26.2 % (32.4-45.2); LYMPH % 27.7 % (8-40); MCHC 30.5 g/dl (32.0-36.0); MEAN CELL VOLUME 64.1 fl (80-96); MONO % 11.6 % (3.8-10.2); NEUT % 54.9 % (42.8-82.8); RBC 4.09 M/mm3 (3.60-5.2); RDW 37.1 % (11.6-15.6); WHITE BLOOD COUNT 6.3 K/mm3 (4.0-10.0)
[2022-12-29 08:54] LABS: MCH 19.6 pg (25.7-33.7)
[2022-12-29 09:32] LABS: MEAN PLT VOLUME 8.7 fl (7.5-11.1); PLATELET COUNT 65 10^3/uL (134-434)
[2022-12-29 09:39] LABS: CALCIUM 8.1 mg/dL (8.5-10.1)
[2022-12-29 09:40] LABS: ALBUMIN 3.3 g/dl (3.4-5.0); BLOOD UREA NITROGEN 12.1 mg/dL (7-18)
[2022-12-29 09:43] LABS: CREATININE 0.5 mg/dL (0.55-1.3)
[2022-12-29 09:45] LABS: TOT PROT 6.8 g/dl (6.4-8.2)
[2022-12-29] MEDS: TIOTROPIUM/OLODATEROL HCL (STIOLTO) 4 GM INHALER IH SCH (09:58)
[2022-12-29 15:36] LABS: BILIRUBIN,DIRECT 0.5 mg/dL (0.0-0.2)
[2022-12-29] MEDS ORDERED: BISACODYL 5 MG TABLET.DR (FP) PO ONE (16:00)
[2022-12-29] MEDS ORDERED: PEG 3350/NA SULF BICARB CL/KCL 4000 ML SOLN.RECON PO ONE (17:00)
[2022-12-29] MEDS: LATANOPROST 0.005% OPHTH SOLN 2.5ML BOTTLE OU SCH (21:35)
[2022-12-30 10:48] LABS: BASO % 1.5 % (0-2.0); EOS % 3.3 % (0-4.5); HEMATOCRIT 26.9 % (32.4-45.2); HEMOGLOBIN 8.3 GM/dL (10.7-15.3); LYMPH % 22.5 % (8-40); MCH 20.3 pg (25.7-33.7); MCHC 30.7 g/dl (32.0-36.0); MEAN CELL VOLUME 65.9 fl (80-96); MEAN PLT VOLUME 8.7 fl (7.5-11.1); MONO % 11.2 % (3.8-10.2); NEUT % 61.5 % (42.8-82.8); RBC 4.08 M/mm3 (3.60-5.2); RDW 36.9 % (11.6-15.6); WHITE BLOOD COUNT 6.9 K/mm3 (4.0-10.0)
[2022-12-30 10:52] LABS: INR 1.24 (0.83-1.09); PROTHROMBIN TIME (PATIENT) 14.3 SEC (9.7-13.0)
[2022-12-30 11:07] LABS: ALBUMIN 3.4 g/dl (3.4-5.0); BLOOD UREA NITROGEN 8.5 mg/dL (7-18); CALCIUM 8.5 mg/dL (8.5-10.1)
[2022-12-30 11:08] LABS: CREATININE 0.5 mg/dL (0.55-1.3)
[2022-12-30 11:10] LABS: BILIRUBIN,TOTAL 1.9 mg/dL (0.2-1); TOT PROT 6.9 g/dl (6.4-8.2)
[2022-12-30 11:22] LABS: ANISOCYTOSIS 3+; MACROCYTOSIS 0; PLATELET ESTIMATE DECREASED
[2022-12-30 11:24] LABS: PLATELET COUNT 34 10^3/uL (134-434)
[2022-12-30] MEDS: TIOTROPIUM/OLODATEROL HCL (STIOLTO) 4 GM INHALER IH SCH (16:08)
[2022-12-30 16:21] LABS: EOS % 4.3 % (0-4.5); HEMATOCRIT 26.7 % (32.4-45.2); LYMPH % 24.6 % (8-40); MEAN CELL VOLUME 66.3 fl (80-96); MEAN PLT VOLUME 8.6 fl (7.5-11.1); MONO % 10.2 % (3.8-10.2); NEUT % 59.9 % (42.8-82.8); PLATELET COUNT 40 10^3/uL (134-434); RBC 4.02 M/mm3 (3.60-5.2); RDW 37.6 % (11.6-15.6); WHITE BLOOD COUNT 6.3 K/mm3 (4.0-10.0)
[2022-12-30 16:34] LABS: MCH 19.9 pg (25.7-33.7)
[2022-12-30] MEDS: LATANOPROST 0.005% OPHTH SOLN 2.5ML BOTTLE OU SCH (21:14)
[2022-12-31] MEDS: TIOTROPIUM/OLODATEROL HCL (STIOLTO) 4 GM INHALER IH SCH (09:28)
[2022-12-31 09:31] LABS: HEMATOCRIT 26.3 % (32.4-45.2); MCHC 30.3 g/dl (32.0-36.0); MEAN CELL VOLUME 65.8 fl (80-96); WHITE BLOOD COUNT 5.9 K/mm3 (4.0-10.0)
[2022-12-31 09:46] LABS: MCH 19.9 pg (25.7-33.7)
[2022-12-31 09:53] LABS: MEAN PLT VOLUME 8.3 fl (7.5-11.1); PLATELET COUNT 40 10^3/uL (134-434)
[2022-12-31 11:49] LABS: HIV INTERPRETATION NEGATIVE (NEGATIVE)
[2022-12-31] MEDS: LATANOPROST 0.005% OPHTH SOLN 2.5ML BOTTLE OU SCH (21:43)
[2023-01-01 09:50] LABS: BASO % 1.1 % (0-2.0); EOS % 4.2 % (0-4.5); HEMATOCRIT 26.1 % (32.4-45.2); LYMPH % 23.6 % (8-40); MCH 20.5 pg (25.7-33.7); MCHC 30.8 g/dl (32.0-36.0); MEAN CELL VOLUME 66.5 fl (80-96); MONO % 8.2 % (3.8-10.2); NEUT % 62.9 % (42.8-82.8); RBC 3.93 M/mm3 (3.60-5.2); RDW 37.8 % (11.6-15.6)
[2023-01-01 09:59] LABS: ALBUMIN 3.2 g/dl (3.4-5.0); BLOOD UREA NITROGEN 9.2 mg/dL (7-18)
[2023-01-01 10:00] LABS: CALCIUM 8.2 mg/dL (8.5-10.1)
[2023-01-01 10:01] LABS: CREATININE 0.6 mg/dL (0.55-1.3)
[2023-01-01 10:03] LABS: BILIRUBIN,TOTAL 1.8 mg/dL (0.2-1); TOT PROT 6.6 g/dl (6.4-8.2)
[2023-01-01] MEDS: TIOTROPIUM/OLODATEROL HCL (STIOLTO) 4 GM INHALER IH SCH (10:06)
[2023-01-01 13:31] LABS: PLATELET COUNT 24 10^3/uL (134-434)
[2023-01-01] MEDS: LATANOPROST 0.005% OPHTH SOLN 2.5ML BOTTLE OU SCH (21:30)
[2023-01-02 09:12] LABS: HEMATOCRIT 26.1 % (32.4-45.2); MCH 20.6 pg (25.7-33.7); MCHC 30.5 g/dl (32.0-36.0); MEAN CELL VOLUME 67.4 fl (80-96); RBC 3.88 M/mm3 (3.60-5.2); RDW 38.6 % (11.6-15.6); WHITE BLOOD COUNT 5.9 K/mm3 (4.0-10.0)
[2023-01-02] MEDS: TIOTROPIUM/OLODATEROL HCL (STIOLTO) 4 GM INHALER IH SCH (09:17)
[2023-01-02 09:44] LABS: ANISOCYTOSIS 3+; MACROCYTOSIS 0
[2023-01-02 09:58] LABS: MEAN PLT VOLUME 9.6 fl (7.5-11.1); PLATELET COUNT 36 10^3/uL (134-434)
[2023-01-02] MEDS ORDERED: DEXAMETHASONE 4 MG TABLET (FP) PO SCH (11:30)
[2023-01-02] MEDS ORDERED: IRON SUCROSE INJECTION 200 MG in SODIUM CHLORIDE 90 ML IVPB ONE (13:00)
[2023-01-02] MEDS: LATANOPROST 0.005% OPHTH SOLN 2.5ML BOTTLE OU SCH (22:20)
[2023-01-03 03:07] LABS: FIBROSIS SCORE. 0.41 (0.00-0.21); HCV ALPHA 2 MACRO CHART 186 mg/dL (110-276); NECRO.INFLAM ACT.SCORE 0.05 (0.00-0.17); NECROINFLAM. ACTIVITY GRADE A0-No activity (.)
[2023-01-03] MEDS: TIOTROPIUM/OLODATEROL HCL (STIOLTO) 4 GM INHALER IH SCH (09:43)
[2023-01-03] MEDS ORDERED: IRON SUCROSE INJECTION 200 MG in SODIUM CHLORIDE 90 ML IVPB ONE (10:00)
[2023-01-03 10:26] LABS: HEMATOCRIT 26.4 % (32.4-45.2); HEMOGLOBIN 8.2 GM/dL (10.7-15.3); MEAN CELL VOLUME 67.6 fl (80-96); RDW 38.3 % (11.6-15.6); WHITE BLOOD COUNT 10.1 K/mm3 (4.0-10.0)
[2023-01-03 11:31] LABS: ANISOCYTOSIS 1+; MACROCYTOSIS 0
[2023-01-03 11:33] LABS: PLATELET COUNT 53 10^3/uL (134-434)
[2023-01-03 11:34] LABS: MEAN PLT VOLUME 9.3 fl (7.5-11.1)
[2023-01-03 12:12] VITALS: TEMP 98.1
[2023-01-03 13:40] VITALS: BP 128/57; PULSE 86; RESP 18
== END 2023-01-03 14:21 | disposition home or self-care (01) | DRG 663 ==
LOC: JER 13:26 → SUPCPDRO 13:26 → JERBED 17:03 → OBSVTOIN 20:11 → J5S 12-27 14:34
PROVIDERS: ADMIT Internal Medicine; ATTEND Internal Medicine
PROC: 30233N1 Transfusion of Nonautologous Red Blood Cells into Peripheral Vein, Percutaneous Approach (ICD-10-PCS; 2022-12-26)
PROC: 07DR3ZX Extraction of Iliac Bone Marrow, Percutaneous Approach, Diagnostic (ICD-10-PCS; principal; 2022-12-31)
PROC: 079T3ZX Drainage of Bone Marrow, Percutaneous Approach, Diagnostic (ICD-10-PCS; 2022-12-31)
DX: D64.9 Anemia, unspecified (principal); J44.9 Chronic obstructive pulmonary disease, unspecified; H40.9 Unspecified glaucoma; D69.6 Thrombocytopenia, unspecified; I10 Essential (primary) hypertension
CPT/HCPCS: 20225; 36415; 36430; 74176-TC; 74183-TC; 80048; 80053; 81003; 82172; 82248; 82272; 82525; 82607; 82728; 82746; 82784; 82977; 83010; 83540; 83550; 83615; 83735; 83883; 84100; 84155; 84165; 84460; 85025; 85027; 85045; 85384; 85610; 85730; 86704; 86705; 86707; 86850; 86900; 86901; 86922; 87389; 87517; 88300-TC; 93005; 93010; 99285-25; A9579; C9803-CS; G0378; J1756; J3535; P9038; P9058; U0003; U0005

== ENCOUNTER 2023-02-03 04:35 | Day surgery (SDC) | payer OTHER ==
[2023-01-29 12:40] VITALS: BMI 30.9
[2023-02-03 12:58] VITALS: BP 131/54; PULSE 64; RESP 14
[2023-02-03 14:26] VITALS: TEMP 98.1
== END 2023-02-03 12:40 | disposition home or self-care (01) ==
LOC: JASU-ENDO 04:35
PROVIDERS: ATTEND Student in an Organized Health Care Education/Training Program
PROC: 0DB78ZX Excision of Stomach, Pylorus, Via Natural or Artificial Opening Endoscopic, Diagnostic (ICD-10-PCS; 2023-02-03)
PROC: 0DB68ZX Excision of Stomach, Via Natural or Artificial Opening Endoscopic, Diagnostic (ICD-10-PCS; principal; 2023-02-03 11:00)
DX: K29.50 Unspecified chronic gastritis without bleeding (principal); K44.9 Diaphragmatic hernia without obstruction or gangrene
CPT/HCPCS: 88305-TC; 88342-TC

== ENCOUNTER 2023-03-17 04:26 | Day surgery (SDC) | payer OTHER ==
[2023-03-13 14:18] VITALS: BMI 30.9
[2023-03-17 14:08] VITALS: BP 149/68; PULSE 69; RESP 16; TEMP 98
== END 2023-03-17 14:08 | disposition home or self-care (01) ==
LOC: JASU-ENDO 04:26
PROVIDERS: ATTEND Student in an Organized Health Care Education/Training Program
PROC: 0DBP8ZX Excision of Rectum, Via Natural or Artificial Opening Endoscopic, Diagnostic (ICD-10-PCS; 2023-03-17)
PROC: 0DBN8ZX Excision of Sigmoid Colon, Via Natural or Artificial Opening Endoscopic, Diagnostic (ICD-10-PCS; principal; 2023-03-17 13:00)
DX: D12.8 Benign neoplasm of rectum (principal); D12.5 Benign neoplasm of sigmoid colon
CPT/HCPCS: 88305-TC

== ENCOUNTER 2024-06-18 18:41 | Emergency (ER) | payer OTHER ==
[2024-06-18 18:49] VITALS: BMI 33.6
[2024-06-18] MEDS ORDERED: ACETAMINOPHEN INJECTION 100 ML ONE (20:18)
[2024-06-18] MEDS: ACETAMINOPHEN 1000 MG/100 ML BAG IVPB ONE (20:22)
[2024-06-18 20:25] LABS: BASO % 0.3 % (0-2.0); EOS % 0.7 % (0-4.5); HEMATOCRIT 44.2 % (32.4-45.2); HEMOGLOBIN 14.5 GM/dL (10.7-15.3); LYMPH % 8.5 % (8-40); MCH 28.7 pg (25.7-33.7); MCHC 32.7 g/dl (32.0-36.0); MEAN CELL VOLUME 87.6 fl (80-96); MEAN PLT VOLUME 9.1 fl (7.5-11.1); MONO % 9.5 % (3.8-10.2); PLATELET COUNT 231 10^3/uL (134-434); RBC 5.04 M/mm3 (3.60-5.2); RDW 15.2 % (11.6-15.6)
[2024-06-18 20:38] LABS: POTASSIUM 3.8 mmol/L (3.5-5.1)
[2024-06-18 20:40] LABS: ALBUMIN 3.4 g/dl (3.4-5.0); BLOOD UREA NITROGEN 17.1 mg/dL (7-18); CALCIUM 8.6 mg/dL (8.5-10.1)
[2024-06-18 20:40] LABS: EPI CELLS 23 /uL (0-25.1); HYALINE CASTS 3 /uL (0-3.1); URINE APPEARANCE CLOUDY; URINE BACTERIA 8 /uL (0-1359); URINE BILIRUBIN NEGATIVE (NEGATIVE); URINE COLOR ORANGE; URINE GLUCOSE (UA) NEGATIVE (NEGATIVE); URINE KETONE 2+ (NEGATIVE); URINE LEUK ESTERASE 2+ (NEGATIVE); URINE NITRITE NEGATIVE (NEGATIVE); URINE PROTEIN 2+ (NEGATIVE); URINE RBC 7208 /uL (0-23.9); URINE UROBILINOGEN 4.0 E.U/dl mg/dL (0.2-1.0); URINE WBC 188 /uL (0-25.8)
[2024-06-18 20:43] LABS: CREATININE 0.8 mg/dL (0.55-1.3)
[2024-06-18 20:45] LABS: BILIRUBIN,TOTAL 1.4 mg/dL (0.2-1); TOT PROT 7.2 g/dl (6.4-8.2)
[2024-06-18 21:37] LABS: HIV INTERPRETATION NEGATIVE (NEGATIVE)
[2024-06-18 22:47] VITALS: BP 144/72; PULSE 72; RESP 19; TEMP 97.9
== END 2024-06-18 22:47 | disposition home or self-care (01) ==
LOC: JER 18:41
PROC: 3E033NZ Introduction of Analgesics, Hypnotics, Sedatives into Peripheral Vein, Percutaneous Approach (ICD-10-PCS; principal; 2024-06-18)
DX: N13.2 Hydronephrosis with renal and ureteral calculous obstruction (principal); R10.13 Epigastric pain; R10.31 Right lower quadrant pain
CPT/HCPCS: 36415; 74177-TC; 80053; 81003; 83690; 85025; 86803; 87086; 87389; 99285-25; J0131; Q9967

== ENCOUNTER 2024-08-05 04:26 | Day surgery (SDC) | payer OTHER ==
[2024-08-03 13:13] VITALS: BMI 33.6
[2024-08-05] MEDS ORDERED: MIDAZOLAM HCL 2 MG/2 ML SINGLE DOSE VIAL ONE (07:35)
[2024-08-05] MEDS ORDERED: PROPOFOL 20 ML ONE (07:35)
[2024-08-05] MEDS ORDERED: ceFAZolin SODIUM 1 GM VIAL ONE (07:56)
[2024-08-05] MEDS: ceFAZolin 2 GRAM PREMIX BAG IVPB ONE (07:57)
[2024-08-05] MEDS ORDERED: ONDANSETRON 4 MG/2 ML VIAL ONE ×2 (08:01→09:09)
[2024-08-05] MEDS ORDERED: DEXAMETHASONE SOD PHOSPHATE 4 MG/1 ML VIAL ONE (08:01)
[2024-08-05] MEDS: LACTATED RINGERS SOLUTION 1,000 ML IV SCH (08:47)
[2024-08-05] MEDS: ONDANSETRON 4 MG/2 ML VIAL IVPUSH PRN (09:15)
[2024-08-05 10:25] VITALS: RESP 16
[2024-08-05 10:53] VITALS: BP 154/62; PULSE 54; TEMP 97.1
== END 2024-08-05 11:20 | disposition home or self-care (01) ==
LOC: JASU-SURG 04:26
PROVIDERS: ATTEND Urology
PROC: 0TC38ZZ Extirpation of Matter from Right Kidney Pelvis, Via Natural or Artificial Opening Endoscopic (ICD-10-PCS; principal; 2024-08-05 07:30)
PROC: 0T768DZ Dilation of Right Ureter with Intraluminal Device, Via Natural or Artificial Opening Endoscopic (ICD-10-PCS; 2024-08-05 07:30)
DX: N20.0 Calculus of kidney (principal)
CPT/HCPCS: 76000-TC-FY; 94760; C1758

== ENCOUNTER 2024-10-08 06:03 | Inpatient (IN) | payer OTHER ==
[2024-10-08] MEDS ORDERED: ALBUTEROL SO4 2.5/IPRATROPIUM 0.5 INH SOL 3 ML VIAL.NEB. NEB ONE ×2 (07:22→07:26)
[2024-10-08] MEDS ORDERED: CEFTRIAXONE 1 G/50 ML PREMIX 50 ML IVPB ONE (07:42)
[2024-10-08] MEDS ORDERED: methylPREDNISolone NA SUCC 125 MG/2 ML VIAL ONE (07:42)
[2024-10-08] MEDS: methylPREDNISolone NA SUCC 125 MG/2 ML VIAL IVPUSH ONE (08:02)
[2024-10-08] MEDS: ALBUTEROL SO4 2.5/IPRATROPIUM 0.5 INH SOL 3 ML VIAL.NEB. NEB ONE (08:15)
[2024-10-08 08:24] LABS: VENOUS BASE EXCESS 2.2 mmol/L (-2-2); VENOUS O2 SATURATION 59.3 % (70-80); VENOUS PCO2 57.5 mmHg (38-52); VENOUS PH 7.327 (7.310-7.410)
[2024-10-08 08:29] LABS: HEMATOCRIT 41.9 % (32.4-45.2); HEMOGLOBIN 12.3 GM/dL (10.7-15.3); MCHC 29.5 g/dl (32.0-36.0); MEAN CELL VOLUME 77.9 fl (80-96); MEAN PLT VOLUME 7.9 fl (7.5-11.1); PLATELET COUNT 508 10^3/uL (134-434); RBC 5.38 M/mm3 (3.60-5.2); RDW 21.3 % (11.6-15.6); WHITE BLOOD COUNT 19.2 K/mm3 (4.0-10.0)
[2024-10-08 08:37] LABS: POTASSIUM 4.1 mmol/L (3.5-5.1)
[2024-10-08 08:39] LABS: CALCIUM 9.4 mg/dL (8.5-10.1)
[2024-10-08 08:40] LABS: ALBUMIN 2.7 g/dl (3.4-5.0)
[2024-10-08 08:43] LABS: CREATININE 0.6 mg/dL (0.55-1.3)
[2024-10-08 08:44] LABS: BILIRUBIN,TOTAL 0.4 mg/dL (0.2-1)
[2024-10-08 08:45] LABS: TOT PROT 7.6 g/dl (6.4-8.2)
[2024-10-08] MEDS: CEFTRIAXONE 1 GM in DEXTROSE 5%-WATER - 50 ML IVPB ONE (08:57)
[2024-10-08] MEDS: AZITHROMYCIN IVPB 250 MG in DEXTROSE 5%-WATER - 250 ML IVPB ONE (08:57)
[2024-10-08 09:50] LABS: ANISOCYTOSIS 2+; MACROCYTOSIS 1+
[2024-10-08] MEDS ORDERED: ACETAMINOPHEN 325 MG TABLET (FP) PO PRN (10:38)
[2024-10-08] MEDS ORDERED: ALBUTEROL SO4 2.5/IPRATROPIUM 0.5 INH SOL 3 ML VIAL.NEB. NEB PRN (10:41)
[2024-10-08] MEDS ORDERED: ALBUTEROL SO4 2.5/IPRATROPIUM 0.5 INH SOL 3 ML VIAL.NEB. NEB SCH (10:45)
[2024-10-08] MEDS: PANTOPRAZOLE 20 MG TABLET PO SCH (11:33)
[2024-10-08] MEDS: amLODIPine BESYLATE 10 MG TABLET (FP) PO SCH (11:33)
[2024-10-08 11:53] VITALS: BMI 38.0
[2024-10-08] MEDS: methylPREDNISolone NA SUCC 40 MG/1 ML VIAL IVPUSH SCH (14:18)
[2024-10-08] MEDS: ALBUTEROL SO4 2.5/IPRATROPIUM 0.5 INH SOL 3 ML VIAL.NEB. NEB SCH (20:21)
[2024-10-08] MEDS: HEPARIN NA (PORCINE) 5,000 UNITS/ML 1ML VIAL SQ SCH (21:22)
[2024-10-08] MEDS: TAMSULOSIN HCL 0.4 MG CAP PO SCH (21:22)
[2024-10-08] MEDS: LATANOPROST 0.005% OPHTH SOLN 2.5ML BOTTLE OU SCH (21:34)
[2024-10-08] MEDS ORDERED: PATIENT'S OWN MEDICATION (NON-FORMULARY) (Cyclosporine [Restasis] 1 EACH Droperette) OU SCH (22:00)
[2024-10-09] MEDS: AZITHROMYCIN IVPB 500 MG/250 ML BAG IVPB SCH (10:08)
[2024-10-09] MEDS: TIOTROPIUM/OLODATEROL HCL (STIOLTO) 4 GM INHALER IH SCH (10:09)
[2024-10-09 10:38] LABS: BASO % 0.1 % (0-2.0); HEMATOCRIT 37.1 % (32.4-45.2); HEMOGLOBIN 11.2 GM/dL (10.7-15.3); LYMPH % 4.3 % (8-40); MCH 22.9 pg (25.7-33.7); MCHC 30.1 g/dl (32.0-36.0); MEAN CELL VOLUME 76.1 fl (80-96); MEAN PLT VOLUME 7.8 fl (7.5-11.1); MONO % 5.6 % (3.8-10.2); PLATELET COUNT 423 10^3/uL (134-434); RBC 4.88 M/mm3 (3.60-5.2); RDW 21.2 % (11.6-15.6); WHITE BLOOD COUNT 15.7 K/mm3 (4.0-10.0)
[2024-10-09 10:53] LABS: POTASSIUM 4.6 mmol/L (3.5-5.1)
[2024-10-09 11:00] LABS: ALBUMIN 2.4 g/dl (3.4-5.0); BLOOD UREA NITROGEN 19.8 mg/dL (7-18)
[2024-10-09 11:04] LABS: CREATININE 0.8 mg/dL (0.55-1.3)
[2024-10-09 11:05] LABS: BILIRUBIN,TOTAL 0.4 mg/dL (0.2-1); TOT PROT 6.6 g/dl (6.4-8.2)
[2024-10-11] MEDS: methylPREDNISolone NA SUCC 40 MG/1 ML VIAL IVPUSH SCH (18:41)
[2024-10-12 14:42] VITALS: BP 143/66; PULSE 100; RESP 18; TEMP 97.9
== END 2024-10-12 15:45 | disposition home or self-care (01) | DRG 192 ==
LOC: JER 06:03 → JERBED 09:39 → J5S 10:54
PROVIDERS: ADMIT Internal Medicine; ATTEND Internal Medicine
DX: J44.1 Chronic obstructive pulmonary disease with (acute) exacerbation (principal); I10 Essential (primary) hypertension
CPT/HCPCS: 0241U-QW; 36415; 71045-TC-FY; 71250-TC; 80053; 82803; 83880; 84484; 85025; 93005; 93010; 94640; 99285-25; J1644; J3535

== ENCOUNTER → 2025-04-07 | Day surgery (SDC) | payer OTHER | END | disposition home or self-care (01) | LOC: FMAMMOTONE 07:41 | PROVIDERS: ATTEND Internal Medicine | PROC: 0HBU3ZX Excision of Left Breast, Percutaneous Approach, Diagnostic (ICD-10-PCS; principal; 2025-04-07) | DX: N60.12 Diffuse cystic mastopathy of left breast (principal); N60.82 Other benign mammary dysplasias of left breast; N60.32 Fibrosclerosis of left breast; N64.89 Other specified disorders of breast; R92.1 Mammographic calcification found on diagnostic imaging of breast | CPT/HCPCS: 19081; 76098-TC-FY; 87899; 88305-TC; A4648 ==